=== PATIENT | female | born 1940 | race Hispanic/Latino ===

== ENCOUNTER 2016-11-24 17:19 | Emergency (ER) | payer MEDICARE, BC ==
--- NOTE | 2016-11-24 18:12 | ERNOTE ---
Medical Problem HPI - Narrative Date of Service: 11/24/16 - General Chief Complaint: General Assessment Time Seen by Provider: 11/24/16 17:47 Source: patient Exam Limitations: no limitations - Immun/Allergies/Home Medications Immunizations: IMMUNIZATION HX Immunizations Up to Date Yes History of Influenza Vaccine Yes Hx Pneumococcal Vaccination Yes Allergies/Adverse Reactions: Allergies ciprofloxacin [From Cipro] Allergy (Unknown, Verified 11/24/16 17:27) ciprofloxacin HCl [From Cipro] Allergy (Unknown, Verified 11/24/16 17:27) glimepiride [From Amaryl] Allergy (Verified 11/24/16 17:27) hydroxychloroquine sulfate [From Plaquenil] Allergy (Verified 11/24/16 17:27) methotrexate Allergy (Verified 11/24/16 17:27) morphine Allergy (Verified 11/24/16 17:27) oxycodone HCl [From Percocet] Allergy (Verified 11/24/16 17:27) Sulfa (Sulfonamide Antibiotics) [Sulfa(Sulfonamide Antibiotics)] Allergy ( Verified 11/24/16 17:27) sulfasalazine Allergy (Verified 11/24/16 17:27) Home Medications: HOME MEDICATIONS Etanercept [Enbrel] 50 mg SQ Q7D 01/25/13 [Last Taken 04/25/15] Insulin Glargine,Hum.rec.anlog [Lantus Solostar] 40 units SQ HS 01/25/13 [Last Taken 04/25/15] Levothyroxine Sodium [Synthroid] 88 mcg PO DAILY 01/25/13 [Last Taken 04/26/15 50 mcg] Pregabalin [Lyrica] 25 mg PO BID 04/26/15 [Last Taken 04/26/15 50 mg] Insulin Lispro [Humalog] 15 unit SQ DAILY 04/24/16 [Last Taken Unknown] Nitroglycerin 0.4 mg SL Q5MX3 04/24/16 [Last Taken Unknown] Clopidogrel Bisulfate [Plavix] 75 mg PO DAILY 05/16/16 [Last Taken Unknown] Furosemide [Lasix] 80 mg PO DAILY 05/16/16 [Last Taken Unknown] Isosorbide Mononitrate [Imdur] 30 mg PO DAILY 05/16/16 [Last Taken Unknown] Aspirin [Aspirin Chewable] 81 mg PO DAILY 06/24/16 [Last Taken Unknown] Calcium Carbonate/Vitamin D3 [Caltrate-600 with Vit D Tab] 667 mg PO TID [Last Taken Unknown] Metoprolol Tartrate [Lopressor] 50 mg PO BID 06/24/16 [Last Taken Unknown] Ranolazine [Ranexa] 500 mg PO BID 06/24/16 [Last Taken Unknown] Allopurinol [Zyloprim (Allopurinol)] 200 mg PO DAILY 11/24/16 [Last Taken Unknown] Cholecalciferol [Vitamin D] 2,000 unit PO DAILY 11/24/16 [Last Taken Unknown] Doxepin HCl [Sinequan] 10 mg PO TID 11/24/16 [Last Taken Unknown] Iron Sucrose Complex [Venofer] 100 mg IV 11/24/16 [Last Taken Unknown] Pregabalin [Lyrica] 75 mg PO DAILY 11/24/16 [Last Taken Unknown] - History of Present History Narrative: Feels dizzy often with low blood pressure. Fell in bathtub this am and hit head. She had dialysis for 4 hours this afternoon. Her blood pressure was low at that time. She is fairly new to dialysis, since August. She has a fistula placed left wrist but has not started to use it yet. Has a right subclavian port. She feels well at the present time. No recent change in her medications. She did not eat much today. No edema. No significant weight change. No bleeding. Date (Duration): 11/24/16 Time (Timing): 10:00 Timing: intermittent Severity: mild Modifying Factors - (Improves): Present: rest Review of Systems - Review of Systems Constitutional: Present: malaise. Absent: fever, chills, weight loss EYE: Present: no symptoms reported ENT: Present: no symptoms reported Respiratory: Present: no symptoms reported. Absent: shortness of breath, cough , wheezing, stridor Cardiology: Absent: chest pain Gastrointestinal/Abdominal: Absent: nausea, vomiting, diarrhea Genitourinary: Present: no symptoms reported Skin: Present: no symptoms reported. Absent: rash, change in color Neurological: Present: dizziness/light-headedness. Absent: seizure, numbness Psych: Present: no symptoms reported - Patient's Past Medical History Patient History - Medical: Diabetes Type 2, Hypothyroidism, Renal Disease, Rheumatoid Arthritis Patient History - Cardiac/Respiratory: Hypertension, Hyperlipidemia, Myocardial Infarction Patient History - Cancer: No Hx of Cancer Patient History - Surgical Procedures: Back Surgery, Cardiac stent, Hysterectomy Patient History - Other: None - Family History Father Family History - Medical: , Diabetes Type 2 Family History - Cardiac/Respiratory: Myocardial Infarction Mother Family History - Medical: , Arthritis, Diabetes Type 2 - Social History Living Situations: home Abuse History: No History of abuse Psych History: No pertinent hx Alcohol Use: none Drug Use: none - Immunizations Immunizations Up to Date: Yes Hx Pneumococcal Vaccination: Yes History of Influenza Vaccine: Yes Physical Exam - Physical Exam General Appearance: Present: wd/wn, alert, no apparent distress, thin Eye Exam: Normal inspection: bilateral, PERRL: bilateral, EOMI: bilateral Ears, Nose, Throat: Present: normal ENT inspection, hearing grossly normal Neck: Present: normal inspection, nontender, supple, full range of motion Respiratory: Present: no respiratory distress, normal breath sounds, no accessory muscle use, chest nontender, lungs clear Cardiovascular/Chest: Present: regular rate, rhythm, no murmur Gastrointestinal/Abdominal: Present: normal bowel sounds Extremity Exam: Present: normal inspection, no edema. Absent: calf tenderness Neurological Exam: Present: alert, oriented, normal mood/affect Skin Exam: Present: normal color, warm/dry ED Progress - Results and Orders Patient's Lab Results:: I have reviewed the patient's lab results. - Vital Signs Patient's Vital Signs:: I have reviewed the patient's vital signs. Vital Signs: Vital Signs 11/24/16 11/24/16 17:22 17:51 Temperature 35.0 C L Pulse Rate 83 84 Respiratory 12 16 Rate Blood Pressure 147/79 136/81 O2 Sat by Pulse 100 96 Oximetry - Progress/Reassessment Chief Complaint: General Assessment Plan - Plan Plan: Home. Postural precautions. Eat and drink regularly. F/U Dr. Yu. Rtn prn. Departure - Departure Clinical Impression: Dizziness, Hypotension (arterial), Chronic renal failure, stage 5 Disposition: Home self-care Condition: Good Instructions: Hypotension Additional Instructions: Eat regularly. Drink a consistent amount of fluids. Get up slowly and make sure you have assistance when bathing. Follow up with Dr. Yu. Referrals: Alvaro Hopkins MD [Primary Care Provider] -
[2016-11-24 18:18] LABS: Hematocrit 43.3 % (37.0-47.0); Hemoglobin 14.7 gm/dL (12.5-16.0); Mean Cell Volume 94.7 fl (78-100); Mean Corpuscular Hemoglobin 32.2 pg (27-31); Mean Corpuscular Hgb Conc 33.9 g/dl (32-36); Mean Platelet Volume 9.8 fl (6.0-9.5); Neutrophil # 2.7 K/mm3 (1.3-6.0); Neutrophil % 53.7 % (42-75.0); Platelet Count 223 K/mm3 (150-450); Red Blood Count 4.57 M/mm3 (4.2-5.4); Red Cell Distribution Width 13.5 % (11.5-14.0)
[2016-11-24 18:31] LABS: Prothrombin Time (Patient) 10.7 Seconds (9.4-11.4)
[2016-11-24 18:32] LABS: INR 1.03 INR (0.90-1.10); Partial Thrombolplastin Time 29.1 Seconds (24-32)
[2016-11-24 18:37] LABS: ALT 38 U/L (19-67); AST 30 U/L (0-48); Albumin * 3.5 gm/dl (3.4-5.0); Alkaline Phosphatase * 141 U/L (50-170); Anion Gap 10.2 mmol/L (6.8-13.8); BUN/Creatinine Ratio 8.6 (9.0-21.6); Bilirubin, Total 0.6 mg/dL (0.0-1.1); Blood Urea Nitrogen 13 mg/dL (3-23); Ca. Corrected For Albumin 8.1 mg/dL (8.4-10.2); Carbon Dioxide 31.1 mmol/L (24-32.6); Chloride 99 mmol/L (97-106); Glucose * 183 mg/dL (70-110); Potassium 4.3 mmol/L (3.4-4.6); Sodium 136 mmol/L (132-142); Total Protein 7.7 gm/dL (6.2-8.2)
[2016-11-24 18:38] LABS: Troponin I Less than 0.017 ng/ml (0.00-0.10)
[2016-11-24 20:22] VITALS: BP 118/64
== END 2016-11-24 19:15 | disposition home or self-care (01) ==
LOC: ER 17:19
DX: I95.9 Hypotension, unspecified (principal); N18.5 Chronic kidney disease, stage 5; R42 Dizziness and giddiness; Z99.2 Dependence on renal dialysis; M06.9 Rheumatoid arthritis, unspecified

== ENCOUNTER 2016-12-08 06:47 | Day surgery (SDC) | payer MEDICARE, BC ==
[~2016-12-08 06:47] MED LIST: ACETAMINOPHEN 325 MG TABLET PO PRN; ACETYLCHOLINE CHLORIDE 20 DROP KIT IO PRN; BUPIVACAINE HCL/PF 30 ML VIAL IJ PRN; CYCLOPENTOLATE HCL 20 DROP BTL LEFTEYE PRN; DEXTROSE 5%-0.5 NORMAL SALINE 1,000 ML IV PRN; EPINEPHrine 1 MG/ML AMPUL IO PRN; HYALURONATE SODIUM 0.4 ML DISP.SYRIN IO PRN; HYALURONATE SODIUM 0.85 ML DISP.SYRIN IO PRN; LIDOCAINE HCL/PF 200 MG/5 ML AMPUL TP PRN; LIDOCAINE HCL/PF 5 ML VIAL IO PRN; NORMAL SALINE 3 ML BOX IV PRN; TETRACAINE HCL 150 DROP BTL OP PRN
--- OUTSIDE RECORDS SUMMARY | 2016-12-08 06:50 | XMS REPORT | Continuity of Care Document ---
:1940 Author Organization [facility] [place] [address] Care Team Providers Name Role Phone Unavailable Primary Care Provider Unavailable Source Comments This disclosure is being made pursuant to the [employer] program and maynot contain all information available regarding this patient.[facility] Active Allergies and Adverse Reactions Not on File Current Medications Be aware that medications may not be up to date as of this document. Alwaysverify current medications with the patient. Not on file Active Problems Not on file Social History Tobacco Use Types Packs/Day Years Used Date Never Assessed Plan of Care Health Maintenance Due Date Last Done Comments Retired-Pertussis Vaccine Adult 1961 Retired-Tetanus Vaccine Adult 1961 Mammogram 1982 Colonoscopy 1992 Well Adult Visit 1992 Zoster Vaccine 60+ 2002 Bone Density 2007 Retired-Pneumococcal 23 Vaccine-65+ yo 2007 Retired-INFLUENZA VACCINE 06/19/2015 Results from Last 3 Months Not on file
--- OUTSIDE RECORDS SUMMARY | 2016-12-08 06:51 | XMS REPORT | Summary of Care ---
:1940 Author Organization [facility] Address [address] [place] [address] Care Team Providers Name Role Phone Alvaro Hopkins Primary Care Physician Encounter Date(s): 11/28/16 - 11/28/16 [facility], [address] [place], [place] [address] Discharge Disposition: 01 Discharged to Home or Self Care Attending Physician: Nader Colunga MD Referring Physician: Nader Colunga MD Vital Signs Most recent to oldest [Reference Range]: 1 Blood Pressure [90-130/60-90 mmHg] 162/90mmHg *HI* (11/28/16 9:27 AM) Mean Arterial Pressure, Cuff 114 mmHg (11/28/16 9:27 AM) Most recent to oldest [Reference Range]: 1 Height/Length Measured 157 cm (11/28/16 9:27 AM) Weight Dosing 66.70 kg1 (11/28/16 9:28 AM) Weight Measured 66.7 kg (11/28/16 9:27 AM) BSA Measured 1.67 m2 (11/28/16 9:27 AM) Body Mass Index Measured 27.06 kg/m2 (11/28/16 9:27 AM) 1Result Comment: This result was because the dosing weight was either not entered or it is>30 days old. This result is based off: Weight Measured November 28, 2016 09:27:00 PARTITION MAKING MACHINE OPERATOR by Dian Amaya RN Problem List Condition Effective Dates Status Health Status Informant Arthritis(Confirmed) Active Cataracts - NOS(Confirmed) Active Closed fracture of foot - Left - 2010 Active NOS(Confirmed) Depression(Confirmed) Active Diabetes mellitus - NOS(Confirmed) 08/01/10 Active Heart disease - NOS(Confirmed) Active Hyperlipidemia(Confirmed) Active Hypertension(Confirmed) 08/01/10 Active Rheumatoid arthritis(Confirmed) Active Thyroid disease(Confirmed) Active Ulcers - NOS(Confirmed) Active Allergies, Adverse Reactions, Alerts Substance Reaction Severity Status ciprofloxacin Decreased hearing Active morphine Rash Active Sulfanilamide Rash Active Medications allopurinol 100 mg oral tablet 2 tab(s), Oral, Daily Start Date: 09/30/16 Status: OrderedAmbien Oral, HS, pt unsure of dose, 0 Refill(s), Start Date: 10/21/16 14:39:00 PARTITION MAKING MACHINE OPERATOR Special Instructions: pt unsure of dose Start Date: 10/21/16 Status: OrderedamLODIPine 5 mg oral tablet 1 tab(s), Oral, Daily, # 30 tab(s), 0 Refill(s), Start Date: 07/31/16 14:33:00 CDT Start Date: 07/31/16 Status: Orderedaspirin 81 mg oral tablet 1 tab(s), Oral, Daily, # 30 tab(s), 0 Refill(s), Start Date: 07/31/16 14:33:00 CDT Start Date: 07/31/16 Status: Orderedatorvastatin 40 mg oral tablet 1 tab(s), Oral, Daily, # 30 tab(s), 0 Refill(s), Start Date: 07/31/16 14:33:00 CDT Start Date: 07/31/16 Status: OrderedAvapro 300 mg oral tablet 1 tab(s), Oral, Daily Start Date: 01/24/14 Stop Date: 07/31/16 Status: Completedcalcium acetate 667 mg oral tablet 1 tab(s), Oral, TID, # 90 tab(s), 2 Refill(s), Start Date: 08/01/16 12:45:00 CDT , Pharmacy: [place], [place] Start Date: 08/01/16 Status: Orderedcholecalciferol 2000 intl units oral tablet 2 tab(s), Oral, Daily, 0 Refill(s), Start Date: 07/31/16 14:45:00 CDT Start Date: 07/31/16 Status: Orderedclopidogrel 75 mg oral tablet 1 tab(s), Oral, Daily, # 30 tab(s), 0 Refill(s), Start Date: 07/31/16 14:34:00 CDT Start Date: 07/31/16 Status: OrderedCoreg 6.25 mg oral tablet 1 tab(s), Oral, BID Start Date: 01/24/14 Stop Date: 07/31/16 Status: CompletedDialyvite Rx oral tablet TAKE ONE TABLET BY MOUTH DAILY WITH SUPPER Special Instructions: TAKE ONE TABLET BY MOUTH DAILY WITH SUPPER Start Date: 09/30/16 Status: OrderedDiltiazem Hydrochloride ER 180 mg/24 hours oral capsule, extended release cap(s), Oral, Daily, 0 Refill(s) Start Date: 01/24/14 Stop Date: 07/31/16 Status: CompletedEnbrel Prefilled Syringe 50 mg/mL subcutaneous solution 1 mL, Subcutaneous, q7days, # 13 mL, 3 Refill(s), Start Date: 08/13/15 15:28:15 CDT, Pharmacy: [facility] Start Date: 08/13/15 Stop Date: 09/30/16 Status: CompletedEnbrel Prefilled Syringe 50 mg/mL subcutaneous solution 1 mL, Subcutaneous, q7days, # 13 mL, 3 Refill(s), Start Date: 09/13/14 11:50:23 PARTITION MAKING MACHINE OPERATOR, Pharmacy: [facility] Start Date: 09/13/14 Stop Date: 08/13/15 Status: CompletedEnbrel Prefilled Syringe 50 mg/mL subcutaneous solution 1 mL, Subcutaneous, q7days, # 13 mL, 3 Refill(s), Start Date: 09/30/16 13:33:57 PARTITION MAKING MACHINE OPERATOR, Pharmacy: [facility] Start Date: 09/30/16 Status: OrderedEnbrel Prefilled Syringe 50 mg/mL subcutaneous solution 1 mL, Subcutaneous, 2x/Wk Start Date: 01/24/14 Stop Date: 06/30/14 Status: DiscontinuedEnbrel Prefilled Syringe 50 mg/mL subcutaneous solution 1 mL, Subcutaneous, q7days, # 13 mL, 0 Refill(s), Start Date: 06/30/14 15:10:00 CDT, Pharmacy: [facility] Start Date: 06/30/14 Stop Date: 09/13/14 Status: Completedfurosemide 40 mg oral tablet 1 tab(s), Oral, BID, # 30 tab(s), 0 Refill(s), Start Date: 07/31/16 14:34:00 CDT Start Date: 07/31/16 Stop Date: 07/31/16 Status: Discontinuedfurosemide 80 mg oral tablet 1 tab(s), Oral, Daily, # 60 tab(s), 3 Refill(s), Start Date: 07/31/16 15:40:00 CDT, Pharmacy: [place], [place] Start Date: 07/31/16 Status: OrderedHumaLOG Cartridge 100 units/mL subcutaneous solution See Instructions, inject by Subcutaneous QID as per insulin sliding scale protocol, 0 Refill(s) Special Instructions: inject by Subcutaneous QID as per insulin sliding scale protocol Start Date: 01/24/14 Status: OrderedHYDROcodone-acetaminophen 5 mg-325 mg oral tablet 1 tab(s), Oral, q6hr, PRN for pain, # 30 tab(s), 0 Refill(s), called to pharmacy (Rx) Start Date: 04/14/14 Stop Date: 05/02/14 Status: CompletedHYDROcodone-acetaminophen 5 mg-325 mg oral tablet 1 tab(s), Oral, TID, Called to [facility]icki [phone]. 05/04/14 @ 0936.[email or web address] duncan, # 90 tab(s), 2 Refill(s) Special Instructions: Called to [facility] [phone]. 05/04/14 @ 0936.[email or web address] duncan Start Date: 05/04/14 Stop Date: 07/05/14 Status: CompletedHYDROcodone-acetaminophen 7.5 mg-325 mg oral tablet 1 tab(s), Oral, q6hr, PRN for pain Start Date: 01/24/14 Stop Date: 04/14/14 Status: Discontinuedisosorbide mononitrate 60 mg oral tablet, extended release 1 tab(s), Oral, qAM, # 90 tab(s), 0 Refill(s), Start Date: 07/31/16 14:37:00 CDT Start Date: 07/31/16 Status: OrderedLantus 100 units/mL subcutaneous solution 46 units, Subcutaneous, HS, Start Date: 01/24/14 12:56:00 CDT Start Date: 01/24/14 Status: Orderedlevothyroxine 75 mcg (0.075 mg) oral tablet 1 tab(s), Oral, Daily Start Date: 01/24/14 Stop Date: 07/31/16 Status: Completedlevothyroxine 88 mcg (0.088 mg) oral capsule 1 cap(s), Oral, Daily, # 30 cap(s), 0 Refill(s), Start Date: 07/31/16 14:37:00 CDT Start Date: 07/31/16 Status: OrderedLyrica 25 mg, Oral, BID, 0 Refill(s), Start Date: 09/30/16 13:07:00 PARTITION MAKING MACHINE OPERATOR Start Date: 09/30/16 Status: OrderedLyrica 25 mg oral capsule 3 cap(s), Oral, BID, # 180 cap(s), 3 Refill(s), Start Date: 08/28/14 15:08:16 PARTITION MAKING MACHINE OPERATOR, called to pharmacy (Rx) Start Date: 08/28/14 Stop Date: 10/24/14 Status: DiscontinuedLyrica 25 mg oral capsule 2 cap(s), Oral, BID, # 360 cap(s), 1 Refill(s), Start Date: 08/28/14 12:59:58 PARTITION MAKING MACHINE OPERATOR, called to pharmacy (Rx) Start Date: 08/28/14 Stop Date: 08/28/14 Status: CompletedLyrica 25 mg oral capsule 2 cap(s), Oral, BID, # 360 cap(s), 1 Refill(s), Start Date: 02/06/14 15:34:00 CDT Start Date: 02/06/14 Stop Date: 08/28/14 Status: CompletedLyrica 25 mg oral capsule 2 cap(s), Oral, BID Start Date: 01/24/14 Stop Date: 02/06/14 Status: DiscontinuedLyrica 75 mg oral capsule 1 cap(s), Oral, BID, # 180 cap(s), 1 Refill(s), Start Date: 03/10/16 9:34:12 CDT , called to pharmacy (Rx) Start Date: 03/10/16 Stop Date: 03/28/16 Status: CompletedLyrica 75 mg oral capsule 1 cap(s), Oral, BID, X 14 days, # 28 cap(s), 0 Refill(s), Start Date: 03/10/16 9 :33:50 CDT, called to pharmacy (Rx) Start Date: 03/10/16 Stop Date: 03/28/16 Status: CompletedLyrica 75 mg oral capsule 1 cap(s), Oral, BID, # 180 cap(s), 3 Refill(s), Start Date: 10/24/14 10:52:00 PARTITION MAKING MACHINE OPERATOR, called to pharmacy (Rx) Start Date: 10/24/14 Stop Date: 08/03/15 Status: CompletedLyrica 75 mg oral capsule 1 cap(s), Oral, BID, # 180 cap(s), 1 Refill(s), Start Date: 03/28/16 13:06:50 CDT, called to pharmacy (Rx) Start Date: 03/28/16 Stop Date: 07/31/16 Status: CompletedLyrica 75 mg oral capsule 1 cap(s), Oral, BID, # 28 cap(s), 0 Refill(s), Start Date: 03/28/16 13:04:08 CDT , called to pharmacy (Rx) Start Date: 03/28/16 Stop Date: 07/31/16 Status: CompletedLyrica 75 mg oral capsule 1 cap(s), Oral, BID, # 180 cap(s), 1 Refill(s), Start Date: 08/03/15 10:36:26 CDT, called to pharmacy (Rx) Start Date: 08/03/15 Stop Date: 03/10/16 Status: Completedmetoprolol tartrate 100 mg oral tablet 1 tab(s), Oral, Daily, # 60 tab(s), 0 Refill(s), Start Date: 07/31/16 14:38:00 CDT Start Date: 07/31/16 Status: OrderedNorco 5 mg-325 mg oral tablet 1 tab(s), Oral, q6hr, PRN for pain, # 30 tab(s), 0 Refill(s), called to pharmacy (Rx) Start Date: 03/08/14 Stop Date: 03/19/14 Status: Completedpantoprazole 40 mg oral delayed release tablet 1 tab(s), Oral, BID, # 30 tab(s), 0 Refill(s), Start Date: 07/31/16 14:38:00 CDT Start Date: 07/31/16 Status: OrderedpredniSONE 2.5 mg oral tablet 1 tab(s), Oral, Daily, # 21 tab(s), 0 Refill(s), Pharmacy: [place], [place] Start Date: 06/27/14 Stop Date: 11/28/14 Status: DiscontinuedpredniSONE 2.5 mg oral tablet 1 tab(s), Oral, Daily, START AFTER STOPPING 5MG TABS, # 14 tab(s), 0 Refill(s), Start Date: 02/02/15 13:49:00 CDT, Pharmacy: [place], [place] Special Instructions: START AFTER STOPPING 5MG TABS Start Date: 02/02/15 Stop Date: 07/31/16 Status: CompletedpredniSONE 5 mg oral tablet 1 tab(s), Oral, Daily, # 30 tab(s), 1 Refill(s), Pharmacy: [facility] Start Date: 02/06/14 Stop Date: 11/28/14 Status: DiscontinuedpredniSONE 5 mg oral tablet See Instructions, 2 tabs daily for 3 days then 1 tab daily for 3 days, # 9 tab(s ), 0 Refill(s), Start Date: 02/02/15 13:49:00 CDT, Pharmacy: [place], [place] Special Instructions: 2 tabs daily for 3 days then 1 tab daily for 3 days Start Date: 02/02/15 Stop Date: 07/31/16 Status: Completedpregabalin 25 mg oral capsule 1 cap(s), Oral, BID, 0 Refill(s), Start Date: 07/31/16 14:39:00 CDT Start Date: 07/31/16 Stop Date: 10/21/16 Status: Completedranolazine 500 mg oral tablet, extended release 1 tab(s), Oral, BID, # 60 tab(s), 0 Refill(s), Start Date: 07/31/16 14:39:00 CDT Start Date: 07/31/16 Stop Date: 10/21/16 Status: Completedranolazine 500 mg oral tablet, extended release 1 tab(s), Oral, BID, # 60 tab(s), 0 Refill(s), Start Date: 09/30/16 13:08:00 PARTITION MAKING MACHINE OPERATOR Start Date: 09/30/16 Status: OrderedVitamin C 500 mg oral tablet 1 tab(s), Oral, Daily, # 30 tab(s), 0 Refill(s), Start Date: 07/31/16 14:46:00 CDT Start Date: 07/31/16 Stop Date: 07/31/16 Status: DiscontinuedVitamin D2 50,000 intl units oral capsule 1 cap(s), Oral, qWeek, # 8 cap(s), 0 Refill(s), Pharmacy: [facility] Start Date: 01/24/14 Stop Date: 07/31/16 Status: Completed Results No data available for this section Immunizations Vaccine Date Refusal Reason influenza virus vaccine, inactivated 07/02/09 pneumococcal 23-polyvalent vaccine 06/19/05 tetanus-diphth toxoids (Td) adult/adol1 07/02/05 1Result Comment: [03/08/2014] Booster Procedures Procedure Date Related Diagnosis Body Site Insertion Arterial Venous Fistula/Shunt (Left)1 10/23/16 Decompression 2014 Discectomy - & Decompression - L2/3 2013 Placement of stents - NOS 2010 Fusion of lumbar spine - L4/5 - NOS 2009 Procedure on back - NOS 2004 Carpal tunnel release - NOS 2002 Cataract extraction - NOS 2002 Angioplasty - with Stent x2 1999 Angioplasty - with Stent 1996 Hysterectomy 1972 GONZALO BSO - Total abdominal hysterectomy and 1972 bilateral salpingo-oophorectomy Dialysis catheter procedure using fluoroscopic guidance 1auto-populated from documented surgical case Social History No data available for this section Assessment and Plan No data available for this section
--- OUTSIDE RECORDS SUMMARY | 2016-12-08 06:51 | XMS REPORT | Continuity of Care Document ---
:1940 Author Organization [facility] ([facility]) Address [address] [place] [address] Phone [phone] Care Team Providers Name Role Phone Alvaro Hopkins Primary Care Provider [phone] Source Comments This disclosure is being made pursuant to the Care Everywhere program, applicable federal and state laws, and may not contain all informaitonavailable regarding this patient.[facility] ([facility]) Active Allergies and Adverse Reactions Allergen Noted Date Severity Reactions Comments Don Inhibitors 05/22/2016 Elevated Creatinine Ciprofloxacin OTHER lost taste or hearing Ezetimibe 05/09/2016 Unknown Hydroxychloroquine 05/27/2016 Stomach Pain Methotrexate 05/27/2016 OTHER "I don't remember. I took it for a long time and my body finally got tired of it." Morphine OTHER Morphine has caused chest pain in the past. Oxycodone 05/27/2016 Pruritus Bgxiymy-Wrm-Pah Reductase 05/09/2016 Stomach Pain Inhibitors Sulfa (Sulfonamide 04/12/2012 Urticaria (Hives) Antibiotics) Current Medications Prescription Sig. Disp. Refills Start Date End Date Status etanercept (ENBREL) inject 1 mL 12 Syringe 4 02/09/2013 Active 50 mg/mL injection subcutaneously syringe every week. Indications: RHEUMATOID ARTHRITIS aspirin 81 mg Take 1 tablet (81 14 tablet 0 05/13/2016 Active chewable tablet mg total) by mouth daily. SUPPLY blood glucose by In Vitro route 2 1 Each 0 05/13/2016 Active (BLOOD GLUCOSE times daily. MONITORING) meter SUPPLY blood glucose daily. Insulin 50 Strip 05/13/2016 Active test strips Dependent SUPPLY FREESTYLE Take as directed 100 Each 05/13/2016 Active lancets daily. Insulin Dependent SUPPLY BD ULTRA-FINE Inject 100 Each 11 05/13/2016 Active ADAM 32 x 4 MM pen subcutaneously 2 needle times daily. insulin glargine Inject 6 Units 15 mL 11 05/22/2016 Active (LANTUS SOLOSTAR) 100 subcutaneously at unit/mL (3 mL) bedtime. injection pen insulin lispro Take 2 units with 15 mL 11 05/22/2016 Active (HumaLOG KWIKPEN) 100 every meal and 1 unit/mL (3 mL) extra unit for injection pen every 100 mg/dL over 200 mg/dL. 200-299 give 1 [id number] give 2 units>400 give 3 units pantoprazole 20 mg EC Take 2 tablets (40 120 tablet 11 06/03/2016 Active tablet mg total) by mouth 2 times daily. levothyroxine 88 mcg Take 1 tablet (88 30 tablet 11 06/03/2016 Active tablet mcg total) by mouth every morning before breakfast. atorvastatin 40 mg Take 1 tablet (40 90 tablet 3 08/19/2016 Active tablet mg total) by mouth daily. clopidogrel 75 mg Take 1 tablet (75 90 tablet 3 08/19/2016 Active tablet mg total) by mouth daily. isosorbide Take 1 tablet (60 90 tablet 3 08/19/2016 Active mononitrate 60 mg CR mg total) by mouth tablet daily. LYRICA 75 mg capsule Take 1 tablet by 06/20/2016 Active mouth daily. allopurinol 100 mg Take 2 tablets by 0 08/23/2016 Active tablet mouth daily. cholecalciferol Take 1 tablet by Active (VITAMIN D3) PO mouth daily. amLODIPine 5 mg Take 1 tablet (5 mg 30 tablet 9 09/03/2016 Active tablet total) by mouth daily. ranolazine (RANEXA) Take 1 tablet (500 180 tablet 3 09/03/2016 Active 500 mg XR tablet mg total) by mouth 2 times daily. metoPROLol tartrate Take 1 tablet (100 180 tablet 3 09/03/2016 Active 100 mg tablet mg total) by mouth every 12 hours. furosemide 40 mg Take 1 tablet (40 180 tablet 3 09/03/2016 Active tablet mg total) by mouth 2 times daily. Active Problems Problem Noted Date Hepatitis B surface antigen positive 08/26/2016 Last Assessment & Plan: Formatting of this note may be different from the original. She is a 75-year-old patient of Dr Pena with a history of RA on enbril, whom we are seeing in consultation for hepatitis B. She has a long-standing prior history of diabetes mellitus, type II, hyp ertension, hypothyroidism, hyperlipidemia, cardiology, disease, status post multiple stents, and rheumatoid arthritis. She has had rheumatoid arthritis and has been treated with methotrexate and sinc e 2005, Enbrel. Her liver numbers have been followed since 1996 and has on occasion been marginally elevated. She has recently been diagnosed with ESRD secondary to diabetes. We are seeing her in consultation after she was found to have Hep B surface antigen positive during the process of initiating dialysis. She was first told she had Hep B in the 1970's she doesn't remember the details of her diagnosis and if she was ever treated. She denied jaundice recently, she has had scleral icterus in the 70s. Denied hematemesis, Review of labs Hep B surface Ab Non reactive Hep B surface antigen : equivocal Repeated Hep B surface antigen Winters: Reactive Hep B core IgM Ab non reactive Repeated Hep B core antibody [place]: non reactive Lab Results Component Value Date ALT 28 05/27/2016 AST 23 05/27/2016 GGT 37* 05/27/2016 ALP 85 05/27/2016 TBILI 0.8 05/27/2016 Risk factors IV drug use: no Tattoos: no Blood transfusions: 4 units in April 2016 for blood loss after a cardiac stent Family history: Brother with liver cancer s/p chemo in 1987 Pill esophagitis 05/29/2016 Encounter for long-term (current) use of steroids 03/02/2013 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 DEXA 02/15/13 ([facility]) Dual femur 0.913 g/cm2 (T -0.8, normal) ; L forearm 0.558 g/cm2, (T -3.7, osteoporosis). Non-proliferative diabetic retinopathy OU 04/12/2012 Diabetic macular edema OS 04/12/2012 Overview: Formatting of this note may be different from the original. Right Eye Left Eye Time To Recurrence: Time To Recurrence: Date VA (D cc) CMT Status Procedure VA (D cc) CMT Status Procedure Cmts 03/17/2012 Avastin 04/12/2012 20/20 20/60-1+ Avastin 329929-3 05/12/2012 Avastin 06/24/12 [id number] Metatarsal fracture 02/25/2011 Overview: 02/2011: Left foot, patient reports 4 broken bones, raised concern for Charcot. 01/2013: no further fractures. Diabetes mellitus type II, with neurological manifestations 02/23/2010 Depression 02/23/2010 Vitamin D deficiency 02/23/2010 Coronary artery disease 02/23/2010 Overview: Hx of stents, Had 2 stents placed in early 2010, unsure which vessels. Chronic renal insufficiency 02/23/2010 Overview: Hx of renal failure 2004 Hypertension 02/23/2010 Hyperlipidemia 02/23/2010 Overview: hx of statin-induced myopathy Hypothyroidism 02/23/2010 H pylori ulcer 02/23/2010 Fibromyalgia 02/23/2010 Sleep disturbance, chronic 02/23/2010 Rotator cuff tendinitis, left 02/23/2010 Degenerative disc disease 02/23/2010 Overview: Lumbar laminectomy February 2005, long post-op infection afterwards. Subacute rheumatic arthritis 12/13/2002 Overview: For many years. Hx of chronic ulceration of rheumatoid nodule over right 1st MTP Rx history: Intolerant to many medications including methotrexate ( transaminase elevation); leflunomide (nausea); hydroxychloroquine led to sick stomach. Prednisone: frequent use for many years etanercept 02/2005- (stopped frequently for infections) Last Assessment & Plan: Hx of chronic ulceration of rheumatoid nodule over right 1st MTP Intolerant to many medications including methotrexate (transaminase elevation) ; leflunomide (nausea); hydroxychloroquine led to sick stomach. Prednisone: frequent use for many years etanercept 02/2005- (stopped frequently for infections) Resolved Problems Problem Noted Date Resolved Date Abdominal pain, epigastric 05/27/2016 05/29/2016 LUQ abdominal pain 05/27/2016 05/29/2016 Chest pain 05/22/2016 05/22/2016 Retroperitoneal bleed 05/13/2016 05/13/2016 Shortness of breath 04/27/2016 05/13/2016 ACS (acute coronary syndrome) 04/27/2016 05/13/2016 Most Recent Encounters Date Type Specialty Providers Description 12/03/2016 Telephone Transplant [facility] Chief Comp: Scheduling 11/28/2016 Orders/Notes Transplant Yashira Gonsales RN Dx: Pre- transplant evaluation for kidney transplant (Primary Dx) 11/28/2016 Telephone Transplant Yashira Gonsales RN Chief Comp: Kidney Transplant Pre-evaluation 11/14/2016 Office Visit Heart and V[facility] Jhon Roblero MD Dx: Coronary artery disease (Primary Dx) 11/13/2016 Telephone Transplant Yashira Gonsales RN Chief Comp: Kidney Transplant Pre-evaluation 10/10/2016 Telephone Transplant Yashira Gonsales RN Chief Comp: Kidney Transplant Pre-evaluation 10/07/2016 Telephone Transplant Yashira Gonsales RN Chief Comp: Kidney Transplant Pre-evaluation 09/29/2016 Abstract Transplant [facility] Immunizations Name Dates Previously Given Next Due Hepatitis B, adult 09/24/2016 Pneumococcal, unspecified 08/17/2005 Social History Tobacco Use Types Packs/Day Years Used Date Never Smoker Smokeless Tobacco: Never Used Alcohol Use Drinks/Week oz/Week Comments No Last Filed Vital Signs Vital Sign Reading Time Taken Blood Pressure 171/79 08/28/2016 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 Pulse 71 08/28/2016 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 Temperature 36 C (96.8 F) 08/28/2016 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 Respiratory Rate 18 05/29/2016 4:12 PM CDT Height 1.575 m (5' 2") 08/28/2016 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 Weight 66.9 kg (147 lb 7.8 oz) 08/28/2016 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 Body Mass Index 26.97 08/28/2016 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 Oxygen Saturation 98% 06/10/2016 1:30 PM CDT Plan of Care Date Type Specialty Providers Description 01/01/2017 Appointment Radiology Chief Comp: Patient Reported Reason For Visit 01/01/2017 Appointment Med GI/Hepatology Nader Flores MD Chief Comp: Patient [address] [place] [address] Visit [phone] (Fax) Health Maintenance Due Date Last Done Comments Tdap Vaccine 1951 Diabetic: Ldl 1960 DIABETIC: Microalbumin 1960 Td Vaccine 1960 Mammogram 1982 Colonoscopy 12/09/1992 Zoster Vaccine 2002 Osteoporosis Screening (DXA Bone 2007 Density) Pneumococcal Vaccine (1 of 2 - PCV13) 2007 DIABETIC: Foot Exam 04/01/2011 DIABETIC: Retinal Eye Exam 04/01/2011 Influenza Vaccine: Seasonal (#1) 05/19/2016 Hepatitis B Vaccine (2 of 3 - Primary 10/22/2016 09/24/2016 Series) DIABETIC: Hemoglobin A1C 10/29/2016 04/28/2016, 07/27/2007, 08/27/2005 DIABETIC: Cholesterol 04/28/2017 04/28/2016 Diabetic: Hdl 04/28/2017 04/28/2016 DIABETIC: Triglycerides 04/29/2017 04/29/2016 Results from Last 3 Months EXTERNAL TUBERCULOSIS SKIN TEST (09/08/2016) Component Value Range Ext TB Result neg NEG-POS Ext Date Read 09/10/16 Ext Size 0mm mm Ext Site left forearm
[2016-12-08] MEDS: PHENYLEPHRINE HCL 50 DROP BTL LEFTEYE PRN ×3 (07:14→07:42)
[2016-12-08] MEDS: TROPICAMIDE 150 DROP BTL LEFTEYE PRN ×3 (07:15→07:42)
[2016-12-08] MEDS ORDERED: RINGERS SOLUTION,LACTATED 1,000 ML IV ONE (07:39)
[2016-12-08 09:36] VITALS: BP 139/75
== END 2016-12-08 06:48 | disposition home or self-care (01) ==
LOC: AMB 06:47
PROVIDERS: ATTEND Ophthalmology
PROC: 08RK3JZ Replacement of Left Lens with Synthetic Substitute, Percutaneous Approach (ICD-10-PCS; principal; 2016-12-08 08:00)
DX: H26.9 Unspecified cataract (principal); I12.9 Hypertensive chronic kidney disease with stage 1 through stage 4 chronic kidney disease, or unspecified chronic kidney disease; N18.4 Chronic kidney disease, stage 4 (severe); E11.22 Type 2 diabetes mellitus with diabetic chronic kidney disease; E03.9 Hypothyroidism, unspecified; M79.7 Fibromyalgia; Z68.26 Body mass index [BMI] 26.0-26.9, adult

== ENCOUNTER 2017-06-10 00:49 | Emergency (ER) | payer MEDICARE, BC ==
--- NOTE | 2017-06-10 00:59 | ERNOTE ---
Chest Pain/Cardiac HPI Time Seen by Provider: 06/10/17 00:58 Source: patient Exam Limitations: no limitations Immunizations: IMMUNIZATION HX Immunizations Up to Date Yes History of Influenza Vaccine Yes Hx Pneumococcal Vaccination Yes Allergies/Adverse Reactions: Allergies hydroxychloroquine sulfate [From Plaquenil] Allergy (Mild, Verified 12/08/16 07: 11) RASH oxycodone HCl [From Percocet] Allergy (Mild, Verified 12/08/16 07:11) Itching ABELARDO Inhibitors Adverse Reaction (Intermediate, Verified 12/08/16 07:11) ELEVATED CREATININE ciprofloxacin [From Cipro] Adverse Reaction (Intermediate, Verified 12/08/16 07: 11) HEARING/TASTE LOSS ciprofloxacin HCl [From Cipro] Adverse Reaction (Intermediate, Verified 07:11) HEARING/TASTE LOSS glimepiride [From Amaryl] Adverse Reaction (Intermediate, Verified 12/08/16 07: 11) NOSEBLEEDS methotrexate Adverse Reaction (Intermediate, Verified 12/08/16 07:11) PAIN, ELEVATED LIVER FUNCTION morphine Adverse Reaction (Intermediate, Verified 12/08/16 07:11) HEART PROBLEMS hydroxychloroquine Adverse Reaction (Mild, Verified 12/08/16 07:11) [place]ij Reductase Inhibitor Adverse Reaction (Mild, Verified 12/08/16 07 :11) STOMACH PAIN Sulfa (Sulfonamide Antibiotics) [Sulfa(Sulfonamide Antibiotics)] Adverse Reaction (Mild, Verified 12/08/16 07:11) Pain sulfasalazine Adverse Reaction (Mild, Verified 12/08/16 07:11) RASH Home Medications: HOME MEDICATIONS Etanercept [Enbrel] 50 mg SQ Q7D 01/25/13 [Last Taken 04/25/15] Insulin Glargine,Hum.rec.anlog [Lantus Solostar] 40 units SQ HS 01/25/13 [Last Taken 04/25/15] Levothyroxine Sodium [Synthroid] 88 mcg PO DAILY 01/25/13 [Last Taken 04/26/15 50 mcg] Insulin Lispro [Humalog] 2 unit SQ TID 04/24/16 [Last Taken Unknown] Nitroglycerin 0.4 mg SL Q5MX3 04/24/16 [Last Taken Unknown] Aspirin [Aspirin Chewable] 81 mg PO DAILY 06/24/16 [Last Taken Unknown] Ranolazine [Ranexa] 500 mg PO BID 06/24/16 [Last Taken Unknown] Allopurinol [Zyloprim (Allopurinol)] 200 mg PO DAILY 11/24/16 [Last Taken 06:00] Cholecalciferol [Vitamin D] 2,000 unit PO DAILY 11/24/16 [Last Taken Unknown] Atorvastatin Calcium 40 mg PO DAILY 12/05/16 [Last Taken Unknown] Calcitriol [Rocaltrol] 0.25 mcg PO DAILY 12/05/16 [Last Taken Unknown] Calcium Acetate [Phoslo] 667 mg PO TID 12/05/16 [Last Taken Unknown] Fluticasone Propionate [Flonase] 1 spray NS DAILY 12/05/16 [Last Taken Unknown] Omeprazole 40 mg PO DAILY 12/05/16 [Last Taken Unknown] Pantoprazole Sodium [Protonix] 20 mg PO BID 12/05/16 [Last Taken Unknown] Polyethylene Glycol 3350 [Miralax] 17 gm PO DAILY 12/05/16 [Last Taken Unknown] Pregabalin [Lyrica] 25 mg PO BID 12/05/16 [Last Taken Unknown] Pregabalin [Lyrica] 25 mg PO BID 12/05/16 [Last Taken Unknown] Ranolazine [Ranexa] 500 mg PO Q12H 12/05/16 [Last Taken Unknown] Zolpidem Tartrate [Ambien] 5 mg PO HS 12/05/16 [Last Taken Unknown] amLODIPine BESYLATE [Norvasc] 5 mg PO DAILY 12/05/16 [Last Taken 12/08/16 06:00] Clopidogrel Bisulfate [Plavix] 75 mg PO DAILY 12/08/16 [Last Taken 12/07/16] Narrative: Pt awoke early this am with shortness of breath. Denies chest pain or cough Timing: constant Severity/Quality: moderate, severe Location: central Activities at Onset: sleep Modifying Factors - Improves: Present: rest Modifying Factors - Worsens: Present: movement Prior Chest Pain/Cardiac Workup: Reports: other - Pt has 3 vessel bypass scheduled for June Review of Systems - Review of Systems Constitutional: Absent: recent illness, fever EYE: Present: no symptoms reported ENT: Present: no symptoms reported Respiratory: Present: See HPI. Absent: cough Cardiology: Absent: chest pain, palpitations Gastrointestinal/Abdominal: Present: nausea. Absent: vomiting Genitourinary: Present: no symptoms reported Musculoskeletal: Absent: back pain, muscle pain Skin: Present: no symptoms reported Neurological: Present: no symptoms reported Endocrine: Absent: excessive sweating Hematologic/Lymphatic: Present: no symptoms reported Psych: Present: anxiety - Patient's Past Medical History Patient History - Medical: Diabetes Type 2, Hypothyroidism, Renal Disease, Rheumatoid Arthritis, Other Patient History - Cardiac/Respiratory: Hypertension, Hyperlipidemia, Myocardial Infarction Patient History - Cancer: No Hx of Cancer Patient History - Surgical Procedures: Back Surgery, Cataracts, Cardiac stent, Hysterectomy Patient History - Other: None - Family History Father Family History - Medical: , Diabetes Type 2 Family History - Cardiac/Respiratory: Coronary Heart Disease, Myocardial Infarction Family History - Cancer: No pertinent family hx Mother Family History - Medical: , Arthritis, Diabetes Type 2 Family History - Cardiac/Respiratory: No pertinent hx Family History - Cancer: No pertinent family hx Brother Family History - Medical: Diabetes Type 2, Other Family History - Cardiac/Respiratory: Coronary Heart Disease Family History - Cancer: Lung - Social History Living Situations: spouse Abuse History: No History of abuse Psych History: No pertinent hx Alcohol Use: none Drug Use: none - Immunizations Immunizations Up to Date: Yes Hx Pneumococcal Vaccination: Yes History of Influenza Vaccine: Yes Physical Exam - Physical Exam General Appearance: Present: wd/wn, alert, mild distress Head Exam: Present: normal inspection, no evidence of injury Eye Exam: Normal inspection: bilateral Ears, Nose, Throat: Present: normal ENT inspection Respiratory: Present: no respiratory distress, normal breath sounds, no accessory muscle use Cardiovascular/Chest: Present: no murmur, tachycardia Gastrointestinal/Abdominal: Present: normal bowel sounds, nontender, nondistended, soft Extremity Exam: Present: normal inspection, normal range of motion, no edema Neurological Exam: Present: alert, oriented, normal mood/affect, no motor/ sensory deficits Skin Exam: Present: normal color, warm/dry ED Progress - Results and Orders Patient's Lab Results:: I have reviewed the patient's lab results. Results and Orders: Laboratory Tests 06/10/17 06/10/17 06/10/17 01:09 01:09 01:09 WBC 5.6 Hgb 8.4 L Hct 24.5 L Plt Count 230 D-Dimer 0.70 H Sodium 132 Plasma Sodium 138 Potassium 5.2 H D Chloride 95 L Carbon Dioxide 25.1 Anion Gap 17.1 H BUN 94 H D Creatinine 4.46 H D Est GFR (Non-Af Amer) 10 L D Random Glucose 466 H Calcium 9.7 Total Bilirubin 0.4 AST 14 ALT 21 Alkaline Phosphatase 96 Troponin I 0.021 B-Natriuretic Peptide 1445 H Total Protein 6.7 Albumin 3.2 L - Vital Signs Patient's Vital Signs:: I have reviewed the patient's vital signs. - EKG EKG: NSR, no ST T wave changes EKG read: Interp. by me - X-Ray X-Ray #1 X-Ray: chest Interpretation: Interp. by me X-ray Comments: no infiltrate or effusion. 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 Departure - Departure Clinical Impression: Chronic renal failure, stage 5 Dyspnea Qualifiers: Dyspnea type: shortness of breath Qualified Code(s): R06.02 - Shortness of breath Coronary artery disease Qualifiers: Coronary Disease-Associated Artery/Lesion type: [place] artery [place] vs. transplanted heart: [place] heart Associated angina: without angina Qualified Code(s): I25.10 - Atherosclerotic heart disease of [place] coronary artery without angina pectoris Disposition: Home Follow Up Needed Condition: Good Instructions: Iron Deficiency Anemia, Adult, [id number] Additional Instructions: Talk to your dialysis doctor about your fluid levels and anemia. Take it easy, do not walk long distances. Return to ER as necessary Referrals: Alvaro Hopkins MD [Primary Care Provider] -
[2017-06-10 01:14] LABS: Hematocrit 24.5 % (37.0-47.0); Hemoglobin 8.4 gm/dL (12.5-16.0); Mean Cell Volume 105.2 fl (78-100); Mean Corpuscular Hemoglobin 36.1 pg (27-31); Mean Corpuscular Hgb Conc 34.3 g/dl (32-36); Mean Platelet Volume 10.1 fl (6.0-9.5); Neutrophil # 2.6 K/mm3 (1.3-6.0); Neutrophil % 45.9 % (42-75.0); Platelet Count 230 K/mm3 (150-450); Red Blood Count 2.33 M/mm3 (4.2-5.4); Red Cell Distribution Width 14.5 % (11.5-14.0); White Blood Count 5.6 K/mm3 (4.0-10.5)
[2017-06-10 01:38] LABS: Albumin * 3.2 gm/dl (3.4-5.0); Anion Gap 17.1 mmol/L (6.8-13.8); BUN/Creatinine Ratio 21.1 (9.0-21.6); Bilirubin, Total 0.4 mg/dL (0.0-1.1); Calcium * 9.7 mg/dL (7.9-10.9); Carbon Dioxide 25.1 mmol/L (24-32.6); Potassium 5.2 mmol/L (3.4-4.6); Total Protein 6.7 gm/dL (6.2-8.2); Troponin I 0.021 ng/ml (0.00-0.10)
[2017-06-10 05:07] VITALS: BP 142/58
== END 2017-06-10 02:30 | disposition home or self-care (01) ==
LOC: ER 00:49
DX: N18.5 Chronic kidney disease, stage 5 (principal); R06.02 Shortness of breath; I25.10 Atherosclerotic heart disease of native coronary artery without angina pectoris

== ENCOUNTER 2017-08-08 19:15 | Emergency (ER) | payer MEDICARE ==
[2017-08-08 19:38] VITALS: BP 129/62
--- NOTE | 2017-08-08 20:07 | ERNOTE ---
Medical Problem HPI - Narrative Date of Service: 08/08/17 - General Chief Complaint: General Assessment Time Seen by Provider: 08/08/17 19:40 Source: patient, RN notes reviewed Exam Limitations: no limitations - Immun/Allergies/Home Medications Immunizations: IMMUNIZATION HX Immunizations Up to Date Yes History of Influenza Vaccine Yes Hx Pneumococcal Vaccination Yes Allergies/Adverse Reactions: Allergies hydroxychloroquine sulfate [From Plaquenil] Allergy (Mild, Verified 08/08/17 19: 39) RASH oxycodone HCl [From Percocet] Allergy (Mild, Verified 08/08/17 19:39) Itching ABELARDO Inhibitors Adverse Reaction (Intermediate, Verified 08/08/17 19:39) ELEVATED CREATININE ciprofloxacin [From Cipro] Adverse Reaction (Intermediate, Verified 08/08/17 19: 39) HEARING/TASTE LOSS ciprofloxacin HCl [From Cipro] Adverse Reaction (Intermediate, Verified 19:39) HEARING/TASTE LOSS glimepiride [From Amaryl] Adverse Reaction (Intermediate, Verified 08/08/17 19: 39) NOSEBLEEDS methotrexate Adverse Reaction (Intermediate, Verified 08/08/17 19:39) PAIN, ELEVATED LIVER FUNCTION morphine Adverse Reaction (Intermediate, Verified 08/08/17 19:39) HEART PROBLEMS hydroxychloroquine Adverse Reaction (Mild, Verified 08/08/17 19:39) Ihkxxia-Njp-Ilq Reductase Inhibitor Adverse Reaction (Mild, Verified 08/08/17 19 :39) STOMACH PAIN Sulfa (Sulfonamide Antibiotics) [Sulfa(Sulfonamide Antibiotics)] Adverse Reaction (Mild, Verified 08/08/17 19:39) Pain sulfasalazine Adverse Reaction (Mild, Verified 08/08/17 19:39) RASH Home Medications: HOME MEDICATIONS Etanercept [Enbrel] 50 mg SQ Q7D 01/25/13 [Last Taken 04/25/15] Insulin Glargine,Hum.rec.anlog [Lantus Solostar] 40 units SQ HS 01/25/13 [Last Taken 04/25/15] Levothyroxine Sodium [Synthroid] 88 mcg PO DAILY 01/25/13 [Last Taken 04/26/15 50 mcg] Insulin Lispro [Humalog] 2 unit SQ TID 04/24/16 [Last Taken Unknown] Nitroglycerin 0.4 mg SL Q5MX3 04/24/16 [Last Taken Unknown] Aspirin [Aspirin Chewable] 81 mg PO DAILY 06/24/16 [Last Taken Unknown] Ranolazine [Ranexa] 500 mg PO BID 06/24/16 [Last Taken Unknown] Allopurinol [Zyloprim (Allopurinol)] 200 mg PO DAILY 11/24/16 [Last Taken 06:00] Cholecalciferol [Vitamin D] 2,000 unit PO DAILY 11/24/16 [Last Taken Unknown] Atorvastatin Calcium 40 mg PO DAILY 12/05/16 [Last Taken Unknown] Calcitriol [Rocaltrol] 0.25 mcg PO DAILY 12/05/16 [Last Taken Unknown] Calcium Acetate [Phoslo] 667 mg PO TID 12/05/16 [Last Taken Unknown] Fluticasone Propionate [Flonase] 1 spray NS DAILY 12/05/16 [Last Taken Unknown] Omeprazole 40 mg PO DAILY 12/05/16 [Last Taken Unknown] Pantoprazole Sodium [Protonix] 20 mg PO BID 12/05/16 [Last Taken Unknown] Polyethylene Glycol 3350 [Miralax] 17 gm PO DAILY 12/05/16 [Last Taken Unknown] Pregabalin [Lyrica] 25 mg PO BID 12/05/16 [Last Taken Unknown] Pregabalin [Lyrica] 25 mg PO BID 12/05/16 [Last Taken Unknown] Ranolazine [Ranexa] 500 mg PO Q12H 12/05/16 [Last Taken Unknown] Zolpidem Tartrate [Ambien] 5 mg PO HS 12/05/16 [Last Taken Unknown] amLODIPine BESYLATE [Norvasc] 5 mg PO DAILY 12/05/16 [Last Taken 12/08/16 06:00] Clopidogrel Bisulfate [Plavix] 75 mg PO DAILY 12/08/16 [Last Taken 12/07/16] - History of Present History Narrative: 76 year old female presents to the ED from the [facility] for drainage coming from her sternal wound from a CABG done approximately a month ago. The superior aspect of the wound had dehisced, but did not start draining until this evening. It is currently covered with a Tegarderm. She also has just started taking Augmentin for a sinus infection. Review of Systems - Review of Systems Constitutional: Absent: fever, chills, malaise EYE: Present: no symptoms reported ENT: Present: no symptoms reported Respiratory: Present: no symptoms reported Cardiology: Absent: chest pain, edema Gastrointestinal/Abdominal: Absent: nausea, vomiting, abdominal pain Genitourinary: Present: no symptoms reported Musculoskeletal: Present: no symptoms reported Skin: Present: lesions, lumps. Absent: rash Neurological: Absent: headache, dizziness/light-headedness Endocrine: Present: no symptoms reported Hematologic/Lymphatic: Present: no symptoms reported Psych: Present: no symptoms reported - Patient's Past Medical History Patient History - Medical: Diabetes Type 2, Hypothyroidism, Renal Disease, Rheumatoid Arthritis, Other Patient History - Cardiac/Respiratory: Hypertension, Hyperlipidemia, Myocardial Infarction Patient History - Cancer: No Hx of Cancer Patient History - Surgical Procedures: Back Surgery, Cataracts, Coronary Bypass Surgery, Cardiac stent, Hysterectomy Patient History - Other: None LMP (females 10-50): Menopausal - Family History Father Family History - Medical: , Diabetes Type 2 Family History - Cardiac/Respiratory: Coronary Heart Disease, Myocardial Infarction Family History - Cancer: No pertinent family hx Mother Family History - Medical: , Arthritis, Diabetes Type 2 Family History - Cardiac/Respiratory: No pertinent hx Family History - Cancer: No pertinent family hx Brother Family History - Medical: Diabetes Type 2, Other Family History - Cardiac/Respiratory: Coronary Heart Disease Family History - Cancer: Lung - Social History Living Situations: other Abuse History: No History of abuse Psych History: No pertinent hx Smoking Status: Never smoker Have you smoked in the past 12 months: No Do you dip or chew tobacco: No Alcohol Use: none Drug Use: none - Immunizations Immunizations Up to Date: Yes Hx Pneumococcal Vaccination: Yes History of Influenza Vaccine: Yes Physical Exam - Physical Exam General Appearance: Present: wd/wn, alert, no apparent distress Neck: Present: normal inspection, nontender, supple Respiratory: Present: no respiratory distress, normal breath sounds, no accessory muscle use, lungs clear Cardiovascular/Chest: Present: regular rate, rhythm, no murmur Extremity Exam: Present: normal range of motion, no edema Neurological Exam: Present: alert, oriented, normal mood/affect, no motor/ sensory deficits Skin Exam: Present: normal color, warm/dry, other - superior aspect of sternal wound with dime sized opening and a moderate amount of foul smelling purulent drainage, small amount of purulent drainage also present at left medial knee wound ED Progress - Vital Signs Patient's Vital Signs:: I have reviewed the patient's vital signs. Vital Signs: Vital Signs 08/08/17 19:33 Temperature 36.7 C Pulse Rate 84 Respiratory 14 Rate Blood Pressure 129/62 O2 Sat by Pulse 99 Oximetry - Progress/Reassessment Chief Complaint: General Assessment Progress:: Improved Plan - Plan Plan: Culture obtained from sternal wound, to continue Augmentin pending results. Wound cleansed with NS and mepilex dressing applied. Departure Clinical Impression: Postoperative wound infection Qualifiers: Encounter type: initial encounter Qualified Code(s): T81.4XXA - Infection following a procedure, initial encounter - Departure Disposition: Home Follow Up Needed Condition: Stable Additional Instructions: Continue Augmentin for now - a culture was taken of the wound and you will be contacted regarding changing the antibiotic if needed Cleanse wound with normal saline and apply new Mepilex twice a day or as needed if dressing is soiled Follow up [facility] for fever, vomiting, or other concerns See your surgeon as scheduled next week Referrals: Alvaro Hopkins MD [Primary Care Provider] -
== END 2017-08-08 20:07 | disposition home or self-care (01) ==
LOC: ER 19:15
DX: T81.4XXA Infection following a procedure, initial encounter (principal); E11.9 Type 2 diabetes mellitus without complications; M06.9 Rheumatoid arthritis, unspecified

== ENCOUNTER 2017-11-07 10:33 | Emergency (ER) | payer MEDICARE ==
[2017-11-07 10:53] LABS: Hematocrit 37.8 % (37.0-47.0); Hemoglobin 12.7 gm/dL (12.5-16.0); Mean Cell Volume 95.7 fl (78-100); Mean Corpuscular Hemoglobin 32.2 pg (27-31); Mean Corpuscular Hgb Conc 33.6 g/dl (32-36); Mean Platelet Volume 9.8 fl (6.0-9.5); Neutrophil % 44.1 % (42-75.0); Platelet Count 211 K/mm3 (150-450); Red Blood Count 3.95 M/mm3 (4.2-5.4); Red Cell Distribution Width 17.1 % (11.5-14.0); White Blood Count 4.5 K/mm3 (4.0-10.5)
[2017-11-07 11:10] LABS: Troponin I Less than 0.017 ng/ml (0.00-0.10)
[2017-11-07 11:12] LABS: ALT 29 U/L (19-67); AST 21 U/L (0-48); Albumin * 3.8 gm/dl (3.4-5.0); Alkaline Phosphatase * 124 U/L (50-170); Anion Gap 11.1 mmol/L (6.8-13.8); BNP * 1765 pg/mL (5-325); BUN/Creatinine Ratio 6.9 (9.0-21.6); Blood Urea Nitrogen 24 mg/dL (3-23); Calcium * 9.2 mg/dL (7.9-10.9); Carbon Dioxide 31.3 mmol/L (24-32.6); Chloride 100 mmol/L (97-106); Glucose * 218 mg/dL (70-110); Potassium 4.4 mmol/L (3.4-4.6); Sodium 138 mmol/L (132-142); Total Protein 8.2 gm/dL (6.2-8.2)
--- NOTE | 2017-11-07 11:29 | ERNOTE ---
Dyspnea - Date Date of Service: 11/07/17 - General Presenting Symptoms: shortness of breath, other - worsening neuropathy and chest pain Time Seen by Provider: 11/07/17 10:48 Source: patient Exam Limitations: no limitations - Immun/Allergies/Home Medications Immunizations: IMMUNIZATION HX Immunizations Up to Date Yes History of Influenza Vaccine Yes Hx Pneumococcal Vaccination Yes Allergies/Adverse Reactions: Allergies hydroxychloroquine sulfate [From Plaquenil] Allergy (Mild, Verified 11/07/17 10: 44) RASH oxycodone HCl [From Percocet] Allergy (Mild, Verified 11/07/17 10:44) Itching ABELARDO Inhibitors Adverse Reaction (Intermediate, Verified 11/07/17 10:44) ELEVATED CREATININE ciprofloxacin [From Cipro] Adverse Reaction (Intermediate, Verified 11/07/17 10: 44) HEARING/TASTE LOSS ciprofloxacin HCl [From Cipro] Adverse Reaction (Intermediate, Verified 10:44) HEARING/TASTE LOSS glimepiride [From Amaryl] Adverse Reaction (Intermediate, Verified 10/12/17 07: 03) NOSEBLEEDS methotrexate Adverse Reaction (Intermediate, Verified 11/07/17 10:44) PAIN, ELEVATED LIVER FUNCTION morphine Adverse Reaction (Intermediate, Verified 11/07/17 10:44) HEART PROBLEMS hydroxychloroquine Adverse Reaction (Mild, Verified 11/07/17 10:44) Houninh-Uwb-Qqs Reductase Inhibitor Adverse Reaction (Mild, Verified 11/07/17 10 :44) STOMACH PAIN Sulfa (Sulfonamide Antibiotics) [Sulfa(Sulfonamide Antibiotics)] Adverse Reaction (Mild, Verified 11/07/17 10:44) Pain sulfasalazine Adverse Reaction (Mild, Verified 11/07/17 10:44) RASH Home Medications: HOME MEDICATIONS Etanercept [Enbrel] 50 mg SQ Q7D 01/25/13 [Last Taken 04/25/15] Insulin Glargine,Hum.rec.anlog [Lantus Solostar] 20 units SQ HS 01/25/13 [Last Taken 04/25/15] Levothyroxine Sodium [Synthroid] 88 mcg PO DAILY 01/25/13 [Last Taken 04/26/15 50 mcg] Insulin Lispro [Humalog] 10 unit SQ TID 04/24/16 [Last Taken Unknown] Nitroglycerin 0.4 mg SL Q5MX3 04/24/16 [Last Taken Unknown] Aspirin [Aspirin Chewable] 81 mg PO DAILY 06/24/16 [Last Taken Unknown] Allopurinol [Zyloprim (Allopurinol)] 200 mg PO DAILY 11/24/16 [Last Taken 06:00] Cholecalciferol [Vitamin D] 2,000 unit PO DAILY 11/24/16 [Last Taken Unknown] Atorvastatin Calcium 40 mg PO DAILY 12/05/16 [Last Taken Unknown] Calcitriol [Rocaltrol] 0.25 mcg PO DAILY 12/05/16 [Last Taken Unknown] Calcium Acetate [Phoslo] 667 mg PO TID 12/05/16 [Last Taken Unknown] Omeprazole 40 mg PO DAILY 12/05/16 [Last Taken Unknown] Pantoprazole Sodium [Protonix] 20 mg PO BID 12/05/16 [Last Taken Unknown] Polyethylene Glycol 3350 [Miralax] 17 gm PO DAILY 12/05/16 [Last Taken Unknown] Pregabalin [Lyrica] 25 mg PO BID 12/05/16 [Last Taken Unknown] amLODIPine BESYLATE [Norvasc] 5 mg PO DAILY 12/05/16 [Last Taken 12/08/16 06:00] Clopidogrel Bisulfate [Plavix] 75 mg PO DAILY 12/08/16 [Last Taken 12/07/16] traMADol HCL [Tramadol HCl] 50 mg PO Q6H #14 tablet 11/07/17 [Last Taken Unknown ] - History of Present Illness Narrative: Pt is a 76 year old with multiple co-morbidities including [place]-triple bypass in 08/04, CRF on dialysis MWF, and DM. She was at the walk in clinic for worsening neuopathy which she describes was now originating from her hips down where as normally she just has it starting at knees down. This has been more severe since Thursday. During the walk in clinic visit she also complained of left upper chest pain, which to me she describes as chronic in nature which comes and goes and occasionally radiates down her left arm. She has been treating this with 6 Tylenol nightly which she thinks exacerbates her pain. She also endorses orthopnea which has been more profound within the past week as well. She states that throught dialysis they have "attempting to take off more fluid." But is unsure how much. Denies n/v/d, dizziness, fevers, sores on her feet, or recent illness. Her blood sugars at home have been elevated in the 300's which is unusual for her. She reports taking all of her medication as prescribed including ASA and plavix. 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 Denies: fever/chills, sweating, palpitations, cough, wheezing, dizziness, lightheadedness, anxiety, tingling of hands/face, muscle spasms, loss of appetite Review of Systems - Review of Systems Constitutional: Present: See HPI. Absent: recent illness, fever, chills, weakness, fatigue EYE: Present: no symptoms reported ENT: Present: nose congestion, nasal drainage. Absent: sore throat, throat swelling Respiratory: Present: See HPI, shortness of breath, orthopnea. Absent: cough, wheezing Cardiology: Present: See HPI, chest pain. Absent: palpitations, syncope, edema Gastrointestinal/Abdominal: Present: no symptoms reported Genitourinary: Present: no symptoms reported, other - on dialysis still produces small amount of urine Musculoskeletal: Present: no symptoms reported Skin: Present: no symptoms reported Neurological: Present: numbness, tingling, pre-existing deficit. Absent: anxiety, dizziness/light-headedness Endocrine: Present: other - elevated blood sugars Hematologic/Lymphatic: Present: no symptoms reported Psych: Present: no symptoms reported - Patient's Past Medical History Patient History - Medical: Diabetes Type 2, Hypothyroidism, Renal Disease, Rheumatoid Arthritis, Other Patient History - Cardiac/Respiratory: Hypertension, Hyperlipidemia, Myocardial Infarction Patient History - Cancer: No Hx of Cancer Patient History - Surgical Procedures: Back Surgery, Cataracts, Coronary Bypass Surgery, Cardiac stent, Hysterectomy, Other Patient History - Other: None LMP (females 10-50): Menopausal - Family History Father Family History - Medical: , Diabetes Type 2 Family History - Cardiac/Respiratory: Coronary Heart Disease, Myocardial Infarction Family History - Cancer: No pertinent family hx Mother Family History - Medical: , Arthritis, Diabetes Type 2 Family History - Cardiac/Respiratory: No pertinent hx Family History - Cancer: No pertinent family hx Brother Family History - Medical: Diabetes Type 2, Other Family History - Cardiac/Respiratory: Coronary Heart Disease Family History - Cancer: Lung - Social History Living Situations: home Abuse History: No History of abuse Psych History: No pertinent hx Alcohol Use: none Drug Use: none - Immunizations Immunizations Up to Date: Yes Hx Pneumococcal Vaccination: Yes History of Influenza Vaccine: Yes Physical Exam - Physical Exam General Appearance: Present: wd/wn, alert, no apparent distress Head Exam: Present: normal inspection Eye Exam: Normal inspection: bilateral Ears, Nose, Throat: Present: normal ENT inspection Neck: Present: normal inspection Respiratory: Present: no respiratory distress, normal breath sounds, no accessory muscle use, chest nontender, lungs clear Cardiovascular/Chest: Present: regular rate, rhythm, no murmur, normal peripheral pulses Peripheral Pulses: N=norm/S=strong/W=weak/B=bound/A=absent: Dorsalis-pedis (R): Normal, Dorsalis-pedis (L): Normal Gastrointestinal/Abdominal: Present: normal bowel sounds, nontender, nondistended, soft, no organomegaly Back Exam: Present: normal inspection Extremity Exam: Present: normal except -, normal range of motion, no edema, other - left forearm fistula present with +thrill/bruit Neurological Exam: Present: alert, oriented, normal mood/affect, no motor/ sensory deficits Skin Exam: Present: normal color, warm/dry ED Progress - Results and Orders Patient's Lab Results:: I have reviewed the patient's lab results. - Vital Signs Patient's Vital Signs:: I have reviewed the patient's vital signs. Vital Signs: Vital Signs 11/07/17 11/07/17 11/07/17 10:36 11:00 11:01 Temperature 36.4 C L Pulse Rate 94 93 93 Respiratory 15 12 Rate Blood Pressure 153/89 148/125 O2 Sat by Pulse 99 100 Oximetry - EKG EKG: changed from, other - SR with prolonged QT and inverted T waves EKG read: Reviewed by me - X-Ray X-Ray #1 X-Ray: chest Interpretation: Reviewed by me X-ray Comments: no focal acute cardiopulmonary findings. - Progress/Reassessment Chief Complaint: Dyspnea Progress:: Improved Plan - Plan Plan: Pt chest pain and dyspnea have improved since admission. Her main concern is still her increased neuropathy. I am recluctant, as discussed with pt, to change any of her medications for this as she states her personal development educator did not want to increase them before due to her CRF and causing increased lethargy. She has attempted Lyrica before and did not find it helpful. I have discussed the non acute findings of her radiology and laboratory reports. She reports slight relief of symptoms with the Nubian injection. She will be given Tramadol to assist with pain control until she can see her PCP. I will refer the rest of her care and medication management to her PCP and personal development educator. Although she is encourage to come back in for any additional concerns, SOB, or CP. Departure Clinical Impression: Angina pectoris without myocardial infarction, Hyperglycemia, Neuropathy, Shortness of breath CRF (chronic renal failure) Qualifiers: Chronic kidney disease stage: stage 4 (severe) Qualified Code(s): N18.4 - Chronic kidney disease, stage 4 (severe) - Departure Disposition: Home Follow Up Needed Condition: Good Instructions: Diabetic Nephropathy Additional Instructions: As discussed with you, we did not find any acute findings while in the ER today. You need to follow up with Dr. Hopkins and your personal development educator for further treatment and medication changes regarding your neuropathy. If your chest pain worsens or you experience SOB please return to the ER. You glucose was elevated at 214 here, please keep close management of this and follow diabetic diet as it can cause increased neuropathic pain when elevated. Take half of tramadol first to make sure you tolerate it. Referrals: Alvaro Hopkins MD [Staff Physician] - Prescriptions: traMADol HCL [Tramadol HCl] 50 mg PO Q6H #14 tablet
[2017-11-07] MEDS ORDERED: NALBUPHINE HCL 20 MG/ML AMPUL IM ONE (11:45)
[2017-11-07] MEDS ORDERED: NALBUPHINE HCL 20 MG/ML AMPUL ONE (11:50)
[2017-11-07 13:00] VITALS: BP 167/74
== END 2017-11-07 13:11 | disposition home or self-care (01) ==
LOC: ER 10:33
DX: I20.9 Angina pectoris, unspecified (principal); R73.9 Hyperglycemia, unspecified; G62.9 Polyneuropathy, unspecified; N18.4 Chronic kidney disease, stage 4 (severe); R06.02 Shortness of breath; Z95.5 Presence of coronary angioplasty implant and graft; I25.2 Old myocardial infarction

== ENCOUNTER 2017-11-09 01:07 | Emergency (ER) | payer MEDICARE ==
[2017-11-09] MEDS ORDERED: LORazepam 2 MG/ML DISP.SYRIN IV ONE (01:31)
[2017-11-09] MEDS ORDERED: LORazepam 2 MG/ML DISP.SYRIN ONE (01:34)
[2017-11-09 01:48] LABS: Hematocrit 35.9 % (37.0-47.0); Hemoglobin 11.9 gm/dL (12.5-16.0); Mean Corpuscular Hemoglobin 31.8 pg (27-31); Mean Corpuscular Hgb Conc 33.1 g/dl (32-36); Mean Platelet Volume 9.6 fl (6.0-9.5); Neutrophil # 1.8 K/mm3 (1.3-6.0); Neutrophil % 42.5 % (42-75.0); Platelet Count 199 K/mm3 (150-450); Red Blood Count 3.74 M/mm3 (4.2-5.4); Red Cell Distribution Width 16.9 % (11.5-14.0); White Blood Count 4.3 K/mm3 (4.0-10.5)
[2017-11-09 02:11] LABS: ALT 30 U/L (19-67); AST 21 U/L (0-48); Albumin * 3.7 gm/dl (3.4-5.0); Alkaline Phosphatase * 114 U/L (50-170); Anion Gap 14.9 mmol/L (6.8-13.8); BNP * 1827 pg/mL (5-325); BUN/Creatinine Ratio 8.9 (9.0-21.6); Bilirubin, Total 1.3 mg/dL (0.0-1.1); Blood Urea Nitrogen 37 mg/dL (3-23); Ca. Corrected For Albumin 9.4 mg/dL (8.4-10.2); Calcium * 9.5 mg/dL (7.9-10.9); Carbon Dioxide 26.7 mmol/L (24-32.6); Chloride 100 mmol/L (97-106); Glucose * 151 mg/dL (70-110); Potassium 4.6 mmol/L (3.4-4.6); Sodium 137 mmol/L (132-142); Total Protein 7.7 gm/dL (6.2-8.2); Troponin I Less than 0.017 ng/ml (0.00-0.10)
--- NOTE | 2017-11-09 02:38 | ERNOTE ---
Dyspnea - Date Date of Service: 11/09/17 - General Presenting Symptoms: shortness of breath, difficulty of breathing Time Seen by Provider: 11/09/17 01:30 Source: patient, family Exam Limitations: no limitations - Immun/Allergies/Home Medications Immunizations: IMMUNIZATION HX Immunizations Up to Date Yes History of Influenza Vaccine Yes Hx Pneumococcal Vaccination Yes Allergies/Adverse Reactions: Allergies hydroxychloroquine sulfate [From Plaquenil] Allergy (Mild, Verified 11/09/17 01: 20) RASH oxycodone HCl [From Percocet] Allergy (Mild, Verified 11/09/17 01:20) Itching ABELARDO Inhibitors Adverse Reaction (Intermediate, Verified 11/09/17 01:20) ELEVATED CREATININE ciprofloxacin [From Cipro] Adverse Reaction (Intermediate, Verified 11/09/17 01: 20) HEARING/TASTE LOSS ciprofloxacin HCl [From Cipro] Adverse Reaction (Intermediate, Verified 01:20) HEARING/TASTE LOSS glimepiride [From Amaryl] Adverse Reaction (Intermediate, Verified 11/09/17 01: 20) NOSEBLEEDS methotrexate Adverse Reaction (Intermediate, Verified 11/09/17 01:20) PAIN, ELEVATED LIVER FUNCTION morphine Adverse Reaction (Intermediate, Verified 11/09/17 01:20) HEART PROBLEMS hydroxychloroquine Adverse Reaction (Mild, Verified 11/09/17 01:20) Mhrsdxf-Nev-Oba Reductase Inhibitor Adverse Reaction (Mild, Verified 11/09/17 01 :20) STOMACH PAIN Sulfa (Sulfonamide Antibiotics) [Sulfa(Sulfonamide Antibiotics)] Adverse Reaction (Mild, Verified 11/09/17 01:20) Pain sulfasalazine Adverse Reaction (Mild, Verified 11/09/17 01:20) RASH Home Medications: HOME MEDICATIONS Etanercept [Enbrel] 50 mg SQ Q7D 01/25/13 [Last Taken 04/25/15] Insulin Glargine,Hum.rec.anlog [Lantus Solostar] 20 units SQ HS 01/25/13 [Last Taken 04/25/15] Levothyroxine Sodium [Synthroid] 88 mcg PO DAILY 01/25/13 [Last Taken 04/26/15 50 mcg] Insulin Lispro [Humalog] 10 unit SQ TID 04/24/16 [Last Taken Unknown] Nitroglycerin 0.4 mg SL Q5MX3 04/24/16 [Last Taken Unknown] Aspirin [Aspirin Chewable] 81 mg PO DAILY 06/24/16 [Last Taken Unknown] Allopurinol [Zyloprim (Allopurinol)] 200 mg PO DAILY 11/24/16 [Last Taken 06:00] Cholecalciferol [Vitamin D] 2,000 unit PO DAILY 11/24/16 [Last Taken Unknown] Atorvastatin Calcium 40 mg PO DAILY 12/05/16 [Last Taken Unknown] Calcitriol [Rocaltrol] 0.25 mcg PO DAILY 12/05/16 [Last Taken Unknown] Calcium Acetate [Phoslo] 667 mg PO TID 12/05/16 [Last Taken Unknown] Omeprazole 40 mg PO DAILY 12/05/16 [Last Taken Unknown] Pantoprazole Sodium [Protonix] 20 mg PO BID 12/05/16 [Last Taken Unknown] Polyethylene Glycol 3350 [Miralax] 17 gm PO DAILY 12/05/16 [Last Taken Unknown] Pregabalin [Lyrica] 25 mg PO BID 12/05/16 [Last Taken Unknown] amLODIPine BESYLATE [Norvasc] 5 mg PO DAILY 12/05/16 [Last Taken 12/08/16 06:00] Clopidogrel Bisulfate [Plavix] 75 mg PO DAILY 12/08/16 [Last Taken 12/07/16] traMADol HCL [Tramadol HCl] 50 mg PO Q6H #14 tablet 11/07/17 [Last Taken Unknown ] - History of Present Illness Narrative: patient woke up this am anxiious and sob Severity: moderate 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 Initiating event: Reports: sleep Frequency of episodes: Reports: frequent episodes Modifying Factors - (Improves): Reports: rest Associated Symptoms-Dyspnea: Reports: lightheadedness, tingling of hands/face Prior Treatment: Reports: recently seen, treated by physician Review of Systems - Narrative Narrative: unremarkable - Review of Systems Constitutional: Present: See HPI, weakness, fatigue, malaise EYE: Present: no symptoms reported ENT: Present: no symptoms reported Respiratory: Present: See HPI, shortness of breath Cardiology: Present: no symptoms reported Gastrointestinal/Abdominal: Present: no symptoms reported Genitourinary: Present: no symptoms reported Musculoskeletal: Present: no symptoms reported Skin: Present: no symptoms reported Neurological: Present: no symptoms reported Endocrine: Present: no symptoms reported Hematologic/Lymphatic: Present: no symptoms reported Psych: Present: See HPI, anxiety - Narrative Narrative: positive for kidney failure - Patient's Past Medical History Patient History - Medical: Diabetes Type 2, Hypothyroidism, Renal Disease, Rheumatoid Arthritis Patient History - Cardiac/Respiratory: Hypertension, Hyperlipidemia, Myocardial Infarction Patient History - Cancer: No Hx of Cancer Patient History - Surgical Procedures: Back Surgery, Cataracts, Coronary Bypass Surgery, Cardiac stent, Hysterectomy, Other Patient History - Other: None LMP (females 10-50): Menopausal - Family History Family History:: no untoward family reactions to anesthesia, no familial bleeding tendencies, no family history of clotting disorders, no family history of premature - Family History Father Family History - Medical: , Diabetes Type 2 Family History - Cardiac/Respiratory: Coronary Heart Disease, Myocardial Infarction Family History - Cancer: No pertinent family hx Mother Family History - Medical: , Arthritis, Diabetes Type 2 Family History - Cardiac/Respiratory: No pertinent hx Family History - Cancer: No pertinent family hx Brother Family History - Medical: Diabetes Type 2, Other Family History - Cardiac/Respiratory: Coronary Heart Disease Family History - Cancer: Lung - Social History Living Situations: home Abuse History: No History of abuse Psych History: No pertinent hx Smoking Status: Never smoker Have you smoked in the past 12 months: No Do you dip or chew tobacco: No Patient requests Smoking Cessation Consult: No Initiate information on Smoking Cessation: No Alcohol Use: none Drug Use: none - Immunizations Immunizations Up to Date: Yes Hx Pneumococcal Vaccination: Yes History of Influenza Vaccine: Yes Physical Exam - Physical Exam General Appearance: Present: mild distress Head Exam: Present: normal inspection, no evidence of injury Eye Exam: Normal inspection: bilateral, PERRL: bilateral, EOMI: bilateral Ears, Nose, Throat: Present: normal ENT inspection, normal pharynx Neck: Present: normal inspection, nontender Respiratory: Present: no respiratory distress, normal breath sounds, no accessory muscle use, chest nontender, lungs clear Cardiovascular/Chest: Present: regular rate, rhythm, no murmur, normal peripheral pulses Peripheral Pulses: N=norm/S=strong/W=weak/B=bound/A=absent: Carotid (R): Normal , Carotid (L): Normal, Radial (R): Normal, Radial (L): Normal, Femoral (R): Normal, Femoral (L): Normal, Dorsalis-pedis (R): Normal, Dorsalis-pedis (L): Normal Gastrointestinal/Abdominal: Present: normal bowel sounds, nontender, nondistended, soft, no organomegaly Back Exam: Present: normal inspection, normal range of motion, no CVA tenderness , no vertebral tenderness Extremity Exam: Present: normal inspection Neurological Exam: Present: alert, oriented, normal mood/affect, no motor/ sensory deficits DTR: N=norm/NB=norm/brisk/A=abs/DD=dull/dimin/HC=hyperactive: Bicep (R): Normal , Bicep (L): Normal, Tricep (R): Normal, Tricep (L): Normal, Knee (R): Normal, Knee (L): Normal, Ankle (R): Normal, Ankle (L): Normal Skin Exam: Present: normal color, warm/dry Lymphatic Exam: Present: no adenopathy ED Progress - Date and Time Seen: Date and Time: 11/09/17 02:35 patient improved,less anxiious - Vital Signs Patient's Vital Signs:: I have reviewed the patient's vital signs. Vital Signs: Vital Signs 11/09/17 11/09/17 11/09/17 01:11 01:30 01:47 Temperature 36.8 C Pulse Rate 91 84 82 Respiratory 18 18 18 Rate Blood Pressure 190/94 163/67 158/68 O2 Sat by Pulse 100 100 98 Oximetry - EKG EKG: NSR EKG read: Interp. by me - X-Ray X-Ray #1 X-Ray: chest - no acute process Interpretation: Interp. by me - Progress/Reassessment Chief Complaint: Dyspnea Progress:: Improved Plan - Plan Plan: to be dismissed Departure Clinical Impression: Dyspnea, Anxiety about health - Departure Disposition: Home self-care Condition: Fair Instructions: Insomnia, Panic Attacks, [id number] Referrals: Alvaro Hopkins MD [Primary Care Provider] -
[2017-11-09 02:55] VITALS: BP 167/72
== END 2017-11-09 02:51 | disposition home or self-care (01) ==
LOC: ER 01:07
DX: R06.00 Dyspnea, unspecified (principal); F41.1 Generalized anxiety disorder

== ENCOUNTER 2017-11-10 23:53 | Emergency (ER) | payer MEDICARE ==
--- NOTE | 2017-11-11 00:22 | ERNOTE ---
Dyspnea - Date Date of Service: 11/11/17 - General Presenting Symptoms: shortness of breath Time Seen by Provider: 11/11/17 00:11 Source: patient - Immun/Allergies/Home Medications Immunizations: IMMUNIZATION HX Immunizations Up to Date Yes History of Influenza Vaccine Yes Hx Pneumococcal Vaccination Yes Allergies/Adverse Reactions: Allergies hydroxychloroquine sulfate [From Plaquenil] Allergy (Mild, Verified 11/09/17 01: 20) RASH oxycodone HCl [From Percocet] Allergy (Mild, Verified 11/09/17 01:20) Itching ABELARDO Inhibitors Adverse Reaction (Intermediate, Verified 11/09/17 01:20) ELEVATED CREATININE ciprofloxacin [From Cipro] Adverse Reaction (Intermediate, Verified 11/09/17 01: 20) HEARING/TASTE LOSS ciprofloxacin HCl [From Cipro] Adverse Reaction (Intermediate, Verified 01:20) HEARING/TASTE LOSS glimepiride [From Amaryl] Adverse Reaction (Intermediate, Verified 11/09/17 01: 20) NOSEBLEEDS methotrexate Adverse Reaction (Intermediate, Verified 11/09/17 01:20) PAIN, ELEVATED LIVER FUNCTION morphine Adverse Reaction (Intermediate, Verified 11/09/17 01:20) HEART PROBLEMS hydroxychloroquine Adverse Reaction (Mild, Verified 11/09/17 01:20) Cfraidk-Run-Bfc Reductase Inhibitor Adverse Reaction (Mild, Verified 11/09/17 01 :20) STOMACH PAIN Sulfa (Sulfonamide Antibiotics) [Sulfa(Sulfonamide Antibiotics)] Adverse Reaction (Mild, Verified 11/09/17 01:20) Pain sulfasalazine Adverse Reaction (Mild, Verified 11/09/17 01:20) RASH Home Medications: HOME MEDICATIONS Etanercept [Enbrel] 50 mg SQ Q7D 01/25/13 [Last Taken 04/25/15] Insulin Glargine,Hum.rec.anlog [Lantus Solostar] 20 units SQ HS 01/25/13 [Last Taken 04/25/15] Levothyroxine Sodium [Synthroid] 88 mcg PO DAILY 01/25/13 [Last Taken 04/26/15 50 mcg] Insulin Lispro [Humalog] 10 unit SQ TID 04/24/16 [Last Taken Unknown] Nitroglycerin 0.4 mg SL Q5MX3 04/24/16 [Last Taken Unknown] Aspirin [Aspirin Chewable] 81 mg PO DAILY 06/24/16 [Last Taken Unknown] Allopurinol [Zyloprim (Allopurinol)] 200 mg PO DAILY 11/24/16 [Last Taken 06:00] Cholecalciferol [Vitamin D] 2,000 unit PO DAILY 11/24/16 [Last Taken Unknown] Atorvastatin Calcium 40 mg PO DAILY 12/05/16 [Last Taken Unknown] Calcitriol [Rocaltrol] 0.25 mcg PO DAILY 12/05/16 [Last Taken Unknown] Calcium Acetate [Phoslo] 667 mg PO TID 12/05/16 [Last Taken Unknown] Omeprazole 40 mg PO DAILY 12/05/16 [Last Taken Unknown] Pantoprazole Sodium [Protonix] 20 mg PO BID 12/05/16 [Last Taken Unknown] Polyethylene Glycol 3350 [Miralax] 17 gm PO DAILY 12/05/16 [Last Taken Unknown] Pregabalin [Lyrica] 25 mg PO BID 12/05/16 [Last Taken Unknown] amLODIPine BESYLATE [Norvasc] 5 mg PO DAILY 12/05/16 [Last Taken 12/08/16 06:00] Clopidogrel Bisulfate [Plavix] 75 mg PO DAILY 12/08/16 [Last Taken 12/07/16] traMADol HCL [Tramadol HCl] 50 mg PO Q6H #14 tablet 11/07/17 [Last Taken Unknown ] LORazepam [Ativan] 0.5 mg PO TID PRN #10 tablet 11/11/17 [Last Taken Unknown] - History of Present Illness Narrative: 76 year old who complains of shortness of breath that usually happens when she goes to bed at about 2200h x 4 days. The dyspnea does not improve with increased use of pillows. Her dialysis was incomplete today due to pain in her legs, that is associated with neuropathy. No complaints of fevers, chills, chest pain, or coughing. Mild upper back pain that she associates with the shortness of breath. She has had similar symptoms over the last month but were associated with anxiety. Seen at [place] last night for similar symptoms. CT angio was negative for PE. PMH: CAD, DM, retroperitoneal hematoma, CRD, elevated D-dimer, [place]. Cardiac stress test done in 2014 was unremarkable. 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 Initiating event: Reports: unknown Frequency of episodes: Reports: frequent episodes Modifying Factors - (Improves): Reports: nothing Modifying Factors (Worsens): Reports: nothing Associated Symptoms-Dyspnea: Denies: chest pain/discomfort, cough, wheezing, leg /calf pain, ankle/leg swelling, dizziness, lightheadedness Prior Treatment: Reports: recently seen Review of Systems - Review of Systems Constitutional: Present: no symptoms reported EYE: Present: no symptoms reported ENT: Present: no symptoms reported Respiratory: Present: See HPI Cardiology: Present: no symptoms reported Gastrointestinal/Abdominal: Present: no symptoms reported Genitourinary: Present: no symptoms reported Musculoskeletal: Present: no symptoms reported Skin: Present: no symptoms reported Neurological: Present: no symptoms reported Endocrine: Present: no symptoms reported Hematologic/Lymphatic: Present: no symptoms reported Psych: Present: no symptoms reported - Patient's Past Medical History Patient History - Medical: Diabetes Type 2, Hypothyroidism, Renal Disease, Rheumatoid Arthritis Patient History - Cardiac/Respiratory: Hypertension, Hyperlipidemia, Myocardial Infarction Patient History - Cancer: No Hx of Cancer Patient History - Surgical Procedures: Back Surgery, Cataracts, Coronary Bypass Surgery, Cardiac stent, Hysterectomy, Other Patient History - Other: None - Family History Father Family History - Medical: , Diabetes Type 2 Family History - Cardiac/Respiratory: Coronary Heart Disease, Myocardial Infarction Family History - Cancer: No pertinent family hx Mother Family History - Medical: , Arthritis, Diabetes Type 2 Family History - Cardiac/Respiratory: No pertinent hx Family History - Cancer: No pertinent family hx Brother Family History - Medical: Diabetes Type 2, Other Family History - Cardiac/Respiratory: Coronary Heart Disease Family History - Cancer: Lung - Social History Living Situations: spouse Abuse History: No History of abuse Psych History: No pertinent hx Smoking Status: Never smoker Have you smoked in the past 12 months: No Do you dip or chew tobacco: No Alcohol Use: none Drug Use: none - Immunizations Immunizations Up to Date: Yes Hx Pneumococcal Vaccination: Yes History of Influenza Vaccine: Yes ED Progress - Results and Orders Patient's Lab Results:: I have reviewed the patient's lab results. - Vital Signs Patient's Vital Signs:: I have reviewed the patient's vital signs. Vital Signs: Vital Signs 11/11/17 00:00 Temperature 37.3 C Pulse Rate 92 Respiratory 16 Rate Blood Pressure 163/77 O2 Sat by Pulse 100 Oximetry - Progress/Reassessment Chief Complaint: Dyspnea Progress:: Improved Progress Note-Subjective: 11/11/17 01:14 Symptoms have completely resolved after Ativan. 11/11/17 01:32 She was able to ambulate without being short of breath and did not desaturate nor did she have pain. Departure Clinical Impression: Anxiety - Departure Disposition: Home self-care Condition: Fair Instructions: Panic Attacks, [id number] Print Language: Cambodian Additional Instructions: If you feel worse return to the ED. See your doctor next week. Referrals: Alvaro Hopkins MD [Primary Care Provider] - Prescriptions: LORazepam [Ativan] 0.5 mg PO TID PRN #10 tablet PRN Reason: Anxiety
[2017-11-11] MEDS ORDERED: LORazepam 2 MG/ML DISP.SYRIN IV ONE (00:31)
[2017-11-11 00:32] LABS: Hematocrit 34.1 % (37.0-47.0); Hemoglobin 11.6 gm/dL (12.5-16.0); Mean Corpuscular Hemoglobin 32.3 pg (27-31); Neutrophil % 51.2 % (42-75.0); Platelet Count 227 K/mm3 (150-450); Red Blood Count 3.59 M/mm3 (4.2-5.4); Red Cell Distribution Width 16.7 % (11.5-14.0); White Blood Count 3.8 K/mm3 (4.0-10.5)
[2017-11-11] MEDS ORDERED: LORazepam 2 MG/ML DISP.SYRIN ONE (00:33)
[2017-11-11 00:57] LABS: ALT 33 U/L (19-67); AST 31 U/L (0-48); Albumin * 3.9 gm/dl (3.4-5.0); Alkaline Phosphatase * 126 U/L (50-170); Anion Gap 11.5 mmol/L (6.8-13.8); BNP * 2231 pg/mL (5-325); BUN/Creatinine Ratio 6.2 (9.0-21.6); Blood Urea Nitrogen 22 mg/dL (3-23); Ca. Corrected For Albumin 8.5 mg/dL (8.4-10.2); Calcium * 8.7 mg/dL (7.9-10.9); Carbon Dioxide 29.9 mmol/L (24-32.6); Chloride 100 mmol/L (97-106); Glucose * 209 mg/dL (70-110); Potassium 4.4 mmol/L (3.4-4.6); Sodium 137 mmol/L (132-142); Total Protein 8.1 gm/dL (6.2-8.2); Troponin I Less than 0.017 ng/ml (0.00-0.10)
[2017-11-11 01:33] LABS: Urine Bilirubin Negative (NEGATIVE); Urine Blood Negative /ul (NEGATIVE); Urine Ketone Negative (NEGATIVE); Urine Nitrite Negative (NEGATIVE); Urine Protein 30 mg/dL (NEGATIVE); Urine Urobilinogen Normal (NORMAL); Urine pH 7.5 pH (5.0-7.0)
[2017-11-11 01:42] LABS: Urine Amorphous Sediment Moderate - 2+ (NONE-FEW); Urine Appearance Clear; Urine Bacteria None Seen; Urine Color Yellow; Urine Mucus Few - 1+; Urine RBC 0-5 /hpf (0-5); Urine WBC 0-5 /hpf (0-5)
[2017-11-11 01:59] VITALS: BP 152/77
== END 2017-11-11 01:57 | disposition home or self-care (01) ==
LOC: ER 23:53
DX: E11.9 Type 2 diabetes mellitus without complications (principal); Z79.4 Long term (current) use of insulin; I25.2 Old myocardial infarction; Z95.5 Presence of coronary angioplasty implant and graft; M06.9 Rheumatoid arthritis, unspecified; E03.9 Hypothyroidism, unspecified; I10 Essential (primary) hypertension; E78.5 Hyperlipidemia, unspecified

== ENCOUNTER 2019-05-19 19:59 | Observation (INO) ==
[2019-05-19] MEDS ORDERED: ALPRAZolam 0.25 MG TABLET PO ONE (20:18)
--- NOTE | 2019-05-19 20:30 | ERNOTE ---
Abdominal HPI - Narrative Date of Service: 05/19/19 - General Chief Complaint: Abdominal Pain Time Seen by Provider: 05/19/19 20:03 Source: patient, past records - Immun/Allergies/Home Medications Immunizatons: IMMUNIZATION HX Immunizations Up to Date Yes History of Influenza Vaccine Yes Hx Pneumococcal Vaccination Yes Allergies/Adverse Reactions: Allergies hydroxychloroquine sulfate [From Plaquenil] Allergy (Mild, Verified 05/13/19 23:58) RASH oxycodone HCl [From Percocet] Allergy (Mild, Verified 05/13/19 23:58) Itching ABELARDO Inhibitors Adverse Reaction (Intermediate, Verified 05/13/19 23:58) ELEVATED CREATININE ciprofloxacin HCl [From Cipro] Adverse Reaction (Intermediate, Verified 05/19/19 23:23) HEARING/TASTE LOSS glimepiride [From Amaryl] Adverse Reaction (Intermediate, Verified 05/13/19 23:58) NOSEBLEEDS methotrexate Adverse Reaction (Intermediate, Verified 05/13/19 23:58) PAIN, ELEVATED LIVER FUNCTION morphine Adverse Reaction (Intermediate, Verified 05/19/19 23:23) HEART PROBLEMS hydroxychloroquine Adverse Reaction (Mild, Verified 05/13/19 23:58) Csqlqjo-Uvm-Avx Reductase Inhibitor Adverse Reaction (Mild, Verified 05/13/19 23:58) STOMACH PAIN Sulfa (Sulfonamide Antibiotics) [Sulfa(Sulfonamide Antibiotics)] Adverse Reaction (Mild, Verified 05/19/19 23:23) rash sulfasalazine Adverse Reaction (Mild, Verified 05/13/19 23:58) RASH ezetimibe Adverse Reaction (Verified 05/13/19 23:58) Home Medications: HOME MEDICATIONS clopidogrel 75 mg tablet 75 mg PO DAILY #90 tab 11/16/18 [Last Taken Unknown] Insulin Lispro [Humalog] 10 unit SQ AC 01/10/19 [Last Taken Unknown] amlodipine 10 mg tablet 10 mg PO DAILY #90 tab 04/19/19 [Last Taken Unknown] atorvastatin 40 mg tablet 40 mg PO DAILY 04/20/19 [Last Taken Unknown] calcium acetate 667 mg capsule 1,334 mg PO TID cap 04/20/19 [Last Taken Unknown] ALPRAZolam [Xanax] 0.25 mg PO BID PRN 05/19/19 [Last Taken Unknown] Acetaminophen [Tylenol] 650 mg PO Q8H PRN 05/19/19 [Last Taken Unknown] Allopurinol [Zyloprim] 100 mg PO BID 05/19/19 [Last Taken Unknown] Cyclobenzaprine HCl 5 mg PO MOWEFR 05/19/19 [Last Taken Unknown] Furosemide [Lasix] 80 mg PO SUTUTHSA 05/19/19 [Last Taken Unknown] Insulin Glargine,Hum.rec.anlog [Lantus Solostar] 35 unit SUBCUT DAILY 05/19/19 [Last Taken Unknown] Levothyroxine Sodium [Synthroid] 100 mcg PO QAM 05/19/19 [Last Taken Unknown] Lidocaine 15 gm TOPICAL MOWEFR 05/19/19 [Last Taken Unknown] Lidocaine/Prilocaine [Emla] 1 appl TOPICAL MOWEFR 05/19/19 [Last Taken Unknown] Lisinopril [Zestril] 40 mg PO BID 05/19/19 [Last Taken Unknown] Nitroglycerin 1 tab PO Q5M PRN 05/19/19 [Last Taken Unknown] Pramipexole Di-HCl [Mirapex] 0.25 mg PO MOWEFR 05/19/19 [Last Taken Unknown] Pregabalin [Lyrica] 50 mg PO DAILY 05/19/19 [Last Taken Unknown] Colestipol HCl [Colestid] 1 g PO QID #120 tab 05/20/19 [Last Taken Unknown] Folic Acid/Vit B Complex and C [Dialyvite Tablet] 1 ea PO DAILY 05/20/19 [Last Taken Unknown] Ondansetron [Zofran Odt] 8 mg PO Q6H PRN #20 tab.rapdis 05/20/19 [Last Taken Unk nown] Sertraline HCl 25 mg PO DAILY #7 tab 05/20/19 [Last Taken Unknown] Sertraline HCl [Zoloft] 50 mg PO DAILY #30 tab 05/20/19 [Last Taken Unknown] - History of Present Illness Narrative: This is a 78-year-old female with a history of end-stage renal disease on dialysis Thursday and Thursday last dialysis was Thursday, yesterday through left forearm AV fistula. She reports she got the entire course. She has been on dialysis for 3 years. The patient comes into the emergency department because she does not feel good. She reports that she has nausea as well as abdominal pain. The abdominal pain and nausea have been present at least for the last 4 months, since she had her gallbladder taken out. She had diarrhea previous to the gallbladder being removed and says that since the gallbladder was taken out the diarrhea has gotten worse. She has had no vomiting today no fever today. The patient is also complaining of some left leg pain. Review of the patient's chart and discussion with her shows that she has been having this pain in her leg chronically every day for years. She describes it as a cramping burning type sensation. Nothing makes it better or makes it worse. The patient took some Dilaudid just prior to coming to the hospital. She drove herself. She reports taking 4 mg of Dilaudid p.o. about a half an hour before coming into the ER. During my discussion with the patient she admits to a great deal of anxiety and frustration. She says "just shipped me somewhere where they can fix me "when I asked her what she wants fixed, she says "make me better "when I asked the patient if she is think she might have anxiety she says that she has a great deal of anxiety. He becomes tearful and talking about her who is been diagnosed with cancer. She says that her children on family are "getting onto her "about being in the hospital so often. She says she keeps coming in and they can never find anything wrong. She says that her family is starting to think "it is all in your head "the patient reports that she had some anxiety when she woke up this morning around 10:00 she took some Xanax and says that that helped. Nevertheless she ended up in the emergency department for abdominal pain and nausea at around noon. She was treated for an anxiety attack and possible low blood sugar. Her sugar was normal. She was discharged at around 4 5:00. She says that when she was discharged she did not feel any better or different than she does right now. When asked her what change that made her decide to come to the hospital she says "when I start to feel bad like this, I know I will not be able to go to sleep. So I either have to stay up all night or I come in to try and get some help "when I asked her what sort of help is she is hoping to get, she really does not have any specific thoughts besides "make me better "she denied having any chest pain or shortness of breath. She denies blurred vision. She has not had any recent falls. No head injuries that she is aware of. She appears quite frustrated and tearful. Review of Systems - Review of Systems Constitutional: Present: fatigue, malaise, other - Generalized weakness EYE: Present: no symptoms reported ENT: Present: no symptoms reported Respiratory: Present: no symptoms reported Cardiology: Present: no symptoms reported Gastrointestinal/Abdominal: Present: nausea, diarrhea, abdominal pain. Absent: vomiting, constipation Genitourinary: Present: See HPI Musculoskeletal: Present: other - Patient has a history of rheumatoid arthritis and is pain in all of her joints in all parts of her body Skin: Present: no symptoms reported Neurological: Present: no symptoms reported Endocrine: Present: no symptoms reported Hematologic/Lymphatic: Present: no symptoms reported Psych: Present: anxiety, depressed, emotional problems, other - Great deal of frustration and helplessness All Other Systems: All systems neg except as marked Medical History (Updated 05/21/19 @ 00:01 by ) Ankle fracture, left (Acute) Onset Date: ~12/09/18 Vitamin D deficiency (Chronic) Onset Date: Unknown Thyroid disease (Chronic) Onset Date: Unknown Osteoarthritis (Chronic) Onset Date: Unknown Hypertension (Chronic) Onset Date: ~02/23/10 Hyperlipidemia (Chronic) Onset Date: ~02/23/10 Diabetes mellitus (Chronic) Onset Date: ~02/23/10 Depression (Chronic) Onset Date: Unknown Rheumatoid arthritis (Chronic) Onset Date: ~1991 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 RX - intolerant to methotrexate, leflunomide, hydroxychloroquine; usp use of prednisone - stopped frequently for infections Closed fracture of foot LEFT Staphylococcus aureus, methicillin-resistant Thrombocytopenia Onset Date: ~2017 seeing oncology at [facility] Cataract Coronary artery disease Onset Date: ~02/23/10 Degenerative joint disease (DJD) of lumbar spine Onset Date: Unknown Diabetic neuropathy Onset Date: Unknown ESRD (end stage renal disease) on dialysis Onset Date: ~02/23/10 hemodialysis M,W,F; AV fistula ULE Fibromyalgia Onset Date: Unknown Hypothyroidism Onset Date: Unknown Myositis Onset Date: Unknown Pill esophagitis Onset Date: ~05/29/16 Renal failure Spinal stenosis Onset Date: Unknown Thoracic compression fracture Ulcer Fracture of foot bone, left, closed Onset Date: Unknown Fusion of lumbar spine Onset Date: ~2009 L4/5 Gout Onset Date: Unknown History of esophageal dilatation Onset Date: 06/12/17 Hyperkalemia Onset Date: ~07/15/17 Surgical History: Surgical History (Updated 04/19/19 @ 22:53 by Cody Laughlin DO) Cholecystectomy planned 02/10 H/O cardiac catheterization Onset Date: ~2015 H/O foot surgery Onset Date: Unknown Bunion Surgery Fistula Onset Date: ~10/23/16 [facility] - Branchiocephalic fistula left upper arm H/O angioplasty Onset Date: ~1999 stent 1999 - 2 stents H/O colonoscopy Onset Date: ~06/10/17200106/10/17: [facility] - normal H/O discectomy Onset Date: ~2013 and decompression, L2/3 H/O heart surgery Onset Date: ~07/09/17 Coronary artery stent placement; U of I x's 3 ARAGON to LAD, SVG, to OM and SVG to PDA and endoscopic great saphenous vein harvest of the lower extremity H/O toe surgery Onset Date: Unknown Hammer toe History of back surgery Onset Date: ~06/2010 History of carpal tunnel release Onset Date: ~1999 1997 and 1999 Bilateral History of cataract surgery Onset Date: Unknown History of coronary artery stent placement Onset Date: ~04/2016 2011: X2; 2016: MELISSA x 2 to RCA (complicated by retroperitoneal bleed) History of esophagogastroduodenoscopy (EGD) Onset Date: ~2001 mild gastritis and duodenitis with decreased gastric peristalsis History of hysterectomy Onset Date: ~1972 GONZALO BSO - total abdominal hysterectomy and bilateral salpingo-oophorectomy History of lumbar laminectomy Onset Date: ~02/2005 Complicated by post op infection Hx of CABG x3 Joint problem Onset Date: ~02/07/07 Joint aspiration - Dr. Johnson S/P epidural steroid injection Onset Date: Unknown Family History: Family History (Updated 04/27/18 @ 17:04 by Paris Leonard RN) Brother Lung cancer Brother Dialysis patient Diabetes Father , age 89 Diabetes Heart disease Mother , Decreased age 88 Diabetes Acute rheumatoid arthritis Son Diabetes Social History: (Last Reviewed 05/19/19 @ 23:34 by Deb Keene RN) Social History: adopted: No chcf: No Marital status: lives independently: No current occupational status: retired Service: No Tobacco: Smoking Status: Never smoker Alcohol: alcohol intake: never Substance Use: substance use type: does not use Dietary Habits: caffeine: No Physical Exam - Physical Exam General Appearance: Present: wd/wn, alert, no apparent distress Head Exam: Present: normal inspection, no evidence of injury Eye Exam: Normal inspection: bilateral, PERRL: bilateral, EOMI: bilateral Ears, Nose, Throat: Present: normal pharynx, other - Her mucous membranes seems slightly dry, but these are extremely similar to the last time I saw her. Neck: Present: normal inspection, nontender Respiratory: Present: no respiratory distress, normal breath sounds, chest nontender, lungs clear Cardiovascular/Chest: Present: regular rate, rhythm, other - 2/6 systolic murmur best heard over the right upper sternal border Gastrointestinal/Abdominal: Present: nontender, soft, other - No rebound or guarding. Mild tenderness to palpation throughout the entire abdomen. Rectal Exam: Present: deferred Pelvic Exam: Present: deferred Back Exam: Present: normal inspection, no CVA tenderness, no vertebral tenderness Extremity Exam: Present: other - Patient has a patent fistula of the left forearm. Palpable thrill. Good perfusion distally. No obvious abnormalities or deformities in other extremities Neurological Exam: Present: alert, oriented, no motor/sensory deficits, other - Patient is tearful. She seems quite anxious and depressed. She appears to feel helpless. Skin Exam: Present: normal color, warm/dry Lymphatic Exam: Present: no adenopathy Progress - Results and Orders Patient's Lab Results:: I have reviewed the patient's lab results. - Vital Signs Patient's Vital Signs:: I have reviewed the patient's vital signs. Vital Signs: Vital Signs 05/19/19 20:08 Temperature 36.7 C Pulse Rate 85 Respiratory Rate 14 Blood Pressure 175/80 H O2 Sat by Pulse Oximetry 99 - Progress/Reassessment Chief Complaint: Abdominal Pain Plan - Plan Plan: 78-year-old female well-known to the ER and to myself with his history of anxiety. Significant medical illnesses and compensating poorly. Patient took 4 mg of Dilaudid about an hour before I saw her here. She was given a half a milligram of Xanax because I thought that the Dilaudid had already taken effect however shortly after she received the Xanax she started sleeping and had multiple episodes of desaturation. Was placed on 1 L and is doing okay on that. I do not think sending her home at this time is appropriate. I spoke with Dr. Tamez. We will admit the patient observation overnight. She does have dialysis tomorrow at 5 AM and is going to need to miss that. I cannot see transferring the patient to [place] or [place] when her only issue is getting the medicine out of her system. We will attempt to obtain long-term care consultation with case management in the morning. Departure Clinical Impression: Anxiety, Narcotic overdose - Departure Disposition: Still a patient Condition: Stable
[2019-05-20] MEDS ORDERED: ONDANSETRON 8 MG TAB.RAPDIS PO PRN (03:03)
[2019-05-20] MEDS ORDERED: ACETAMINOPHEN 500 MG TABLET PO PRN (03:04)
--- NOTE | 2019-05-20 10:50 | HPDIS ---
Chief Complaint - Chief Complaint Date of Service: 05/20/19 Time of Service: 10:16 Chief Complaint: Weakness, abdominal pain, nausea, somnolence, possible overdose of Dilaudid History of Present Illness: Oriana Bran is a 78-year-old female who was admitted through the ER last night due to mild respiratory depression hypersomnolence, persistent abdominal pain. It was also thought that she needed to go to a [facility] or assisted living arrangement to which the family agreed last night but do not agree this morning. She is a hemodialysis patient and needs to dialyze today or at the latest tomorrow. She has chronic abdominal pain and diarrhea since having her gallbladder removed. The cause of the abdominal pain is unknown but seems to be postoperative. She is a patient of Dr. Hopkins. She is obviously very depressed. I have told her son this morning that she needs some counseling and better medical management of her depression. 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 I will send her home on Colestid to take 1 g 4 times a day. She will need to see Dr. Hopkins to address her depression medicines. 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 RX - intolerant to methotrexate, leflunomide, hydroxychloroquine; 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 - stopped frequently for infections Closed fracture of foot LEFT Staphylococcus aureus, methicillin-resistant Thrombocytopenia Onset Date: ~2017 seeing oncology at [facility] Cataract Coronary artery disease Onset Date: ~02/23/10 Degenerative joint disease (DJD) of lumbar spine Onset Date: Unknown Diabetic neuropathy Onset Date: Unknown ESRD (end stage renal disease) on dialysis Onset Date: ~02/23/10 hemodialysis M,W,F; AV fistula ULE Fibromyalgia Onset Date: Unknown Hypothyroidism Onset Date: Unknown Myositis Onset Date: Unknown Pill esophagitis Onset Date: ~05/29/16 Renal failure Spinal stenosis Onset Date: Unknown Thoracic compression fracture Ulcer Fracture of foot bone, left, closed Onset Date: Unknown Fusion of lumbar spine Onset Date: ~2009 L4/5 Gout Onset Date: Unknown History of esophageal dilatation Onset Date: 06/12/17 Hyperkalemia Onset Date: ~07/15/17 Surgical History: Surgical History (Updated 04/19/19 @ 22:53 by Cody Laughlin DO) Cholecystectomy planned 02/10 H/O cardiac catheterization Onset Date: ~2015 H/O foot surgery Onset Date: Unknown Bunion Surgery Fistula Onset Date: ~10/23/16 [facility] [place] - Branchiocephalic fistula left upper arm H/O angioplasty Onset Date: ~1999 1996 - stent 1999 - 2 stents H/O colonoscopy Onset Date: ~06/10/17200106/10/17: [facility] [place] - normal H/O discectomy Onset Date: ~2013 and decompression, L2/3 H/O heart surgery Onset Date: ~07/09/17 Coronary artery stent placement; U of I x's 3 ARAGON to LAD, SVG, to OM and SVG to PDA and endoscopic great saphenous vein harvest of the lower extremity H/O toe surgery Onset Date: Unknown Hammer toe History of back surgery Onset Date: ~06/2010 History of carpal tunnel release Onset Date: ~1999 1997 and 1999 Bilateral History of cataract surgery Onset Date: Unknown History of coronary artery stent placement Onset Date: ~04/2016 2011: X2; 2016: MELISSA x 2 to RCA (complicated by retroperitoneal bleed) History of esophagogastroduodenoscopy (EGD) Onset Date: ~2001 mild gastritis and duodenitis with decreased gastric peristalsis History of hysterectomy Onset Date: ~1972 GONZALO BSO - total abdominal hysterectomy and bilateral salpingo-oophorectomy History of lumbar laminectomy Onset Date: ~02/2005 Complicated by post op infection Hx of CABG x3 Joint problem Onset Date: ~02/07/07 Joint aspiration - Dr. Johnson S/P epidural steroid injection Onset Date: Unknown Family History: Family History (Updated 04/27/18 @ 17:04 by Paris Leonard RN) Brother Lung cancer Brother Dialysis patient Diabetes Father , age 89 Diabetes Heart disease Mother , Decreased age 88 Diabetes Acute rheumatoid arthritis Son Diabetes Social History: (Last Reviewed 05/19/19 @ 23:34 by Deb Keene RN) Social History: adopted: No mcfp: No Marital status: lives independently: No current occupational status: retired Service: No Tobacco: Smoking Status: Never smoker Alcohol: alcohol intake: never Substance Use: substance use type: does not use Dietary Habits: caffeine: No Review Of Systems (GEN) - Review of Systems Generalized/Overall Review: Present: Weakness, Malaise, Fatigue EENTM: Present: No Symptoms Reported Respiratory: Present: No Symptoms Reported Cardiac: Present: No Symptoms Reported Abdominal: Present: Abdominal Pain, Diarrhea Genitourinary: Present: Anuria Musculoskeletal: Present: No Symptoms Reported Neurological: Present: No Symptoms Reported Skin: Present: No Symptoms Reported Endocrine: Present: No Symptoms Reported Immunizations: IMMUNIZATION HX Immunizations Up to Date Yes History of Influenza Vaccine Yes Hx Pneumococcal Vaccination Yes Allergies/Adverse Reactions: Allergies Allergy/AdvReac Type Severity Reaction Status Date / Time hydroxychloroquine sulfate Allergy Mild RASH Verified 05/13/19 23:58 [From Plaquenil] oxycodone HCl [From Percocet] Allergy Mild Itching Verified 05/13/19 23:58 ABELARDO Inhibitors AdvReac Intermediate ELEVATED Verified 05/13/19 23:58 CREATININE ciprofloxacin HCl AdvReac Intermediate HEARING/TASTE Verified 05/19/19 23:23 [From Cipro] LOSS glimepiride [From Amaryl] AdvReac Intermediate NOSEBLEEDS Verified 05/13/19 23:58 methotrexate AdvReac Intermediate PAIN, Verified 05/13/19 23:58 ELEVATED LIVER FUNCTION morphine AdvReac Intermediate HEART Verified 05/19/19 23:23 PROBLEMS hydroxychloroquine AdvReac Mild Verified 05/13/19 23:58 [id number] Reductase AdvReac Mild STOMACH Verified 05/13/19 23:58 Inhibitor PAIN Sulfa (Sulfonamide AdvReac Mild rash Verified 05/19/19 23:23 Antibiotics) [Sulfa(Sulfonamide Antibiotics)] sulfasalazine AdvReac Mild RASH Verified 05/13/19 23:58 ezetimibe AdvReac Verified 05/13/19 23:58 Home Medications: HOME MEDICATIONS clopidogrel 75 mg tablet 75 mg PO DAILY #90 tab 11/16/18 [Last Taken Unknown] Insulin Lispro [Humalog] 10 unit SQ AC 01/10/19 [Last Taken Unknown] amlodipine 10 mg tablet 10 mg PO DAILY #90 tab 04/19/19 [Last Taken Unknown] atorvastatin 40 mg tablet 40 mg PO DAILY 04/20/19 [Last Taken Unknown] calcium acetate 667 mg capsule 1,334 mg PO TID cap 04/20/19 [Last Taken Unknown] ALPRAZolam [Xanax] 0.25 mg PO BID PRN 05/19/19 [Last Taken Unknown] Acetaminophen [Tylenol] 650 mg PO Q8H PRN 05/19/19 [Last Taken Unknown] Allopurinol [Zyloprim] 100 mg PO BID 05/19/19 [Last Taken Unknown] Cyclobenzaprine HCl 5 mg PO MOWEFR 05/19/19 [Last Taken Unknown] Furosemide [Lasix] 80 mg PO SUTUTHSA 05/19/19 [Last Taken Unknown] Insulin Glargine,Hum.rec.anlog [Lantus Solostar] 35 unit SUBCUT DAILY 05/19/19 [Last Taken Unknown] Levothyroxine Sodium [Synthroid] 100 mcg PO QAM 05/19/19 [Last Taken Unknown] Lidocaine 15 gm TOPICAL MOWEFR 05/19/19 [Last Taken Unknown] Lidocaine/Prilocaine [Emla] 1 appl TOPICAL MOWEFR 05/19/19 [Last Taken Unknown] Lisinopril [Zestril] 40 mg PO BID 05/19/19 [Last Taken Unknown] Nitroglycerin 1 tab PO Q5M PRN 05/19/19 [Last Taken Unknown] Pramipexole Di-HCl [Mirapex] 0.25 mg PO MOWEFR 05/19/19 [Last Taken Unknown] Pregabalin [Lyrica] 50 mg PO DAILY 05/19/19 [Last Taken Unknown] Colestipol HCl [Colestid] 1 g PO QID #120 tab 05/20/19 [Last Taken Unknown] Folic Acid/Vit B Complex and C [Dialyvite Tablet] 1 ea PO DAILY 05/20/19 [Last Taken Unknown] Ondansetron [Zofran Odt] 8 mg PO Q6H PRN #20 tab.rapdis 05/20/19 [Last Taken Unknown] Sertraline HCl 25 mg PO DAILY #7 tab 05/20/19 [Last Taken Unknown] Sertraline HCl [Zoloft] 50 mg PO DAILY #30 tab 05/20/19 [Last Taken Unknown] Exam - Exam Vital Signs: Vital Signs - Last Taken Temp 36.7 C 05/20/19 06:36 Pulse 87 05/20/19 06:36 Resp 12 05/20/19 06:36 BP 165/75 H 05/20/19 06:36 Pulse Ox 100 05/20/19 06:36 Constitutional: Present: Alert, Oriented x3, Cooperative, Well developed, Well nourished, Moderate distress, Elderly ENT Exam: Present: normal ENT inspection, hearing grossly normal, pharynx normal, TMs normal Eye Exam: bilateral eye: normal inspection, PERRL, EOMI Neck: Present: non-tender, supple, limited range of motion Back Exam: Present: normal inspection, no CVA tenderness, no vertebral tenderness Breasts: Present: Exam deferred Respiratory: Present: chest non-tender, lungs clear, normal breath sounds, no respiratory distress, no accessory muscle use Cardiovascular/Chest: Present: normal peripheral pulses, regular rate, rhythm, no chest tenderness, no edema, no gallop, no JVD, no murmur, no rub Peripheral Pulses: carotid (R): 2+, carotid (L): 2+, radial (R): 2+, radial (L): 2+ Abdomen: Present: Normal bowel sounds, soft, tender /Rectal: Present: Exam deferred Extremity: Present: normal range of motion, non-tender, other - Arteriovenous fistula for dialysis Skin Exam: Present: pallor Lymphatic: Present: no adenopathy Neurologic: Present: 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 Bran is stable and alert this morning. She needs to dialyze and has an 1130 appointment. Apparently the going to try to change until tomorrow because she does not feel like going today. She will resume her usual home medicines. - Assessment/Plan (1) Postsurgical dumping syndrome Problem: Chronic (2) Bile-induced gastritis Problem: Chronic (3) Hemodialysis patient Problem: Chronic (4) CRF (chronic renal failure) Problem: Chronic Qualifiers: Chronic kidney disease stage: stage 5 Qualified Code(s): N18.5 - Chronic kidney disease, stage 5 (5) Nausea alone Problem: Chronic (6) Depression Problem: Chronic Qualifiers: Depression Type: major depressive disorder Major depression recurrence: recurrent Active/Remission status: currently active Major depression episode severity: severe Psychotic features: without psychotic features Qualified Code(s): F33.2 - Major depressive disorder, recurrent severe without psychotic features (1) Postsurgical dumping syndrome Problem: Chronic (2) Bile-induced gastritis Problem: Chronic (3) Hemodialysis patient Problem: Chronic (4) CRF (chronic renal failure) Problem: Chronic Qualifiers: Chronic kidney disease stage: stage 5 Qualified Code(s): N18.5 - Chronic kidney disease, stage 5 (5) Nausea alone Problem: Chronic (6) Depression Problem: Chronic Qualifiers: Depression Type: major depressive disorder Major depression recurrence: recurrent Active/Remission status: currently active Major depression episode severity: severe Psychotic features: without psychotic features Qualified Code(s): F33.2 - Major depressive disorder, recurrent severe without psychotic features Description of Stay: Mrs. Bran is had an uneventful night and is fully alert this morning and in no distress. She is still having abdominal pain and diarrhea and very tearful this morning. She needs to go to dialysis this morning. Procedures Performed: none Discharge Location: Home Disposition: Home self-care Condition: Stable Discharge Activity: Activity as tolerated Discharge Diet: Resume usual diet Additional Patient Instructions (free text): -Please make TCM appointment unless m[facility] discharge, or if following up with outside provider. Thank you! Ilene @ [phone] or Paris at [facility] [phone]. Prescriptions (Any new or edited meds): Colestipol HCl [Colestid] 1 g PO QID #120 tab Sertraline HCl 25 mg PO DAILY #7 tab Ondansetron [Zofran Odt] 8 mg PO Q6H PRN #20 tab.rapdis PRN Reason: Nausea And Vomiting Sertraline HCl [Zoloft] 50 mg PO DAILY #30 tab Complete Home Medications List: Complete Home Medication List: clopidogrel 75 mg tablet 75 mg PO DAILY #90 tab 11/16/18 Insulin Lispro [Humalog] 10 unit SQ AC 01/10/19 amlodipine 10 mg tablet 10 mg PO DAILY #90 tab 04/19/19 atorvastatin 40 mg tablet 40 mg PO DAILY 04/20/19 calcium acetate 667 mg capsule 1,334 mg PO TID cap 04/20/19 ALPRAZolam [Xanax] 0.25 mg PO BID PRN 05/19/19 Acetaminophen [Tylenol] 650 mg PO Q8H PRN 05/19/19 Allopurinol [Zyloprim] 100 mg PO BID 05/19/19 Cyclobenzaprine HCl 5 mg PO MOWEFR 05/19/19 Furosemide [Lasix] 80 mg PO SUTUTHSA 05/19/19 Insulin Glargine,Hum.rec.anlog [Lantus Solostar] 35 unit SUBCUT DAILY 05/19/19 Levothyroxine Sodium [Synthroid] 100 mcg PO QAM 05/19/19 Lidocaine 15 gm TOPICAL MOWEFR 05/19/19 Lidocaine/Prilocaine [Emla] 1 appl TOPICAL MOWEFR 05/19/19 Lisinopril [Zestril] 40 mg PO BID 05/19/19 Nitroglycerin 1 tab PO Q5M PRN 05/19/19 Pramipexole Di-HCl [Mirapex] 0.25 mg PO MOWEFR 05/19/19 Pregabalin [Lyrica] 50 mg PO DAILY 05/19/19 Colestipol HCl [Colestid] 1 g PO QID #120 tab 05/20/19 Folic Acid/Vit B Complex and C [Dialyvite Tablet] 1 ea PO DAILY 05/20/19 Ondansetron [Zofran Odt] 8 mg PO Q6H PRN #20 tab.rapdis 05/20/19 Sertraline HCl 25 mg PO DAILY #7 tab 05/20/19 Sertraline HCl [Zoloft] 50 mg PO DAILY #30 tab 05/20/19
[2019-05-20 11:32] VITALS: BP 154/77
== END 2019-05-20 11:56 | disposition home or self-care (01) ==
LOC: MS 19:59 → ER 19:59 → MS 22:36
PROVIDERS: ADMIT Family Medicine; ATTEND Family Medicine
CPT/HCPCS: 87081; 99285; G0378